=== PATIENT | male | born 2000 | race African-American/Black ===

== ENCOUNTER 2019-06-05 07:34 | Observation (INO) | payer OTHER ==
[~2019-06-05] VITALS: Ht 177.8 cm; Wt 72.7 kg
[2019-06-05] MEDS ORDERED: NS 1,000 ML IV ONE (07:45)
--- NOTE | 2019-06-05 08:06 | REP ---
Portable chest, 07:48 a.m., single AP view with the patient semi upright: There are no comparisons. The lung holden are clear. The cardiac size is normal. The peter, mediastinum, and skeletal structures are unremarkable. Impression: Negative portable chest. Electronically Signed by Sky Giles MD 06/05/2019 07:57 A
--- NOTE | 2019-06-05 08:10 | REPVR ---
PROCEDURE INFORMATION: Exam: CT Head Without Contrast Exam date and time: 06/05/2019 7:56 AM Age: 18 years old Clinical indication: Altered mental status/memory loss TECHNIQUE: Imaging protocol: Computed tomography of the head without contrast. Radiation optimization: All CT scans at this facility use at least one of these dose optimization techniques: automated exposure control; mA and/or kV adjustment per patient size (includes targeted exams where dose is matched to clinical indication); or iterative reconstruction. COMPARISON: No relevant prior studies available. FINDINGS: Brain: Normal. No hemorrhage. Unremarkable white matter. No mass effect. Ventricles: Normal. No ventriculomegaly. Bones/joints: Unremarkable. No acute fracture. Sinuses: Visualized sinuses are unremarkable. No fluid levels. Mastoid air cells: Visualized mastoid air cells are well aerated. Soft tissues: Unremarkable. IMPRESSION: No acute intracranial abnormality. Electronically signed by: Joshua Dozier On 06/05/2019 08:10:04 AM
[2019-06-05 08:23] LABS: VENOUS BASE EXCESS 2.6 (-2.0-2.0); VENOUS O2 SATURATION 80.7 % (60.0-80.0); VENOUS PARTIAL PRESSURE CO2 51.7 mmHg (38.0-50.0); VENOUS PARTIAL PRESSURE O2 48.4 mmHg (30.0-50.0); VENOUS PH 7.367 UNITS (7.330-7.430); VENOUS STANDARD HCO3 26.3 MEQ/L; VENOUS TOTAL CO2 30.6 MEQ/L (24.0-28.0)
[2019-06-05 08:36] LABS: BASO % 0.2 % (0.0-1.0); EOS % 0.7 % (0.0-3.0); HEMATOCRIT 43.9 % (42.0-52.0); HEMOGLOBIN 13.6 g/dl (13.5-17.5); LYMPH # 1.1 10^3/uL (1.5-5.0); LYMPH % 19.7 % (24.0-44.0); MEAN CORPUSCULAR HEMOGLOBIN 25.9 pg (27.0-33.0); MEAN CORPUSCULAR VOLUME 83.6 fl (80.0-96.0); MONO # 0.6 10^3/uL (0.0-0.8); MONO % 11.5 % (0.0-5.0); NEUTROPHILS # 3.7 10^3/uL (1.5-8.5); PLATELET COUNT, AUTOMATED 243 10^3/uL (150-450); RED BLOOD COUNT 5.25 10^6/uL (4.30-6.10); WHITE BLOOD COUNT 5.6 10^3/uL (4.0-10.0)
[2019-06-05 09:15] LABS: ACETAMINOPHEN LEVEL < 2.0 UG/ML (10.0-30.0); ALBUMIN 4.1 GM/DL (3.2-5.2); ALT/SGPT 36 U/L (12-78); BILIRUBIN,DIRECT 0.2 MG/DL (0.0-0.2); BILIRUBIN,TOTAL 0.6 MG/DL (0.2-1.0); BLOOD UREA NITROGEN 10 MG/DL (7-18); CALCIUM LEVEL 8.8 MG/DL (8.5-10.1); CARBON DIOXIDE LEVEL 30 MEQ/L (21-32); CHLORIDE LEVEL 101 MEQ/L (98-107); CK-MB VALUE MASS 11.8 NG/ML (<3.6); CPK CREATINE PHOSPHOKINASE 2650 U/L (39-308); CREATININE FOR GFR 0.75 MG/DL (0.70-1.30); ETHYL ALCOHOL (ETHANOL) 0.003 % (0.000-0.010); GLUCOSE, FASTING 88 MG/DL (70-100); MB/CK RELATIVE INDEX 0.45 (< OR =4); POTASSIUM SERUM 4.3 MEQ/L (3.5-5.1); SALICYLATE LEVEL < 1.7 MG/DL (5.0-30.0); SODIUM LEVEL 137 MEQ/L (136-145); THYROID STIMULATING HORMONE 0.969 uIU/ML (0.463-3.98); TOTAL PROTEIN 8.4 GM/DL (6.4-8.2); TROPONIN I < 0.02 NG/ML (< 0.10)
[2019-06-05 09:28] LABS: OSMOLALITY SERUM 283 MOSM/KG (275-295)
[2019-06-05 10:32] LABS: AMPHETAMINES LEVEL URINE NEGATIVE (NEGATIVE); BARBITURATES URINE NEGATIVE (NEGATIVE); BENZODIAZEPINES URINE NEGATIVE (NEGATIVE); CANNABINOIDS URINE NEGATIVE (NEGATIVE); COCAINE METABOLITE URINE NEGATIVE (NEGATIVE); METHADONE URINE NEGATIVE (NEGATIVE); OPIATES URINE NEGATIVE (NEGATIVE); PHENCYCLIDINE URINE NEGATIVE (NEGATIVE)
[2019-06-05] MEDS ORDERED: NS 1,000 ML IV SCH (10:45)
[2019-06-05] MEDS ORDERED: ACETAMINOPHEN TAB 650MG DOSE (2X325MG) PO PRN (11:45)
[2019-06-05] MEDS: NS 1,000 ML IV SCH ×2 (11:45→19:45)
--- NOTE | 2019-06-05 11:59 | HPEPDOC ---
[facility] Medical History & Physical Date of Admission Jun 05, 2019 Date of Service: Jun 05, 2019 Attending Physician: JAVIER FREDERICK MD History and Physical PRIMARY CARE PROVIDER: [facility] ATTENDING: Dr. Frederick CHIEF COMPLAINT: Found unresponsive with cold exposure. HISTORY OF PRESENT ILLNESS: Patient is a 18-year-old -[place] male that was found this morning early in the morning unresponsive at approximately 540 this a.m. outside. Patient reported that he had been outside, as part of a field exercises. His last memory was going inside a tent before waking up at the hospital. When patient was discovered he was hypotensive, bradycardic with respiratory rate around 20, satting 88%. medic began rewarming procedure. EMS reported that patient had glucose in the 40s. He received an amp of D5. On route, in the ED patient was given juice and crackers, a repeat glucose level was 88. As per ED report his initial FS was 98 then dropped to 40s. Patient denied any history of seizures, denies any history of cardiac problems. He does recall one prior episode of loss of consciousness after running a mile and has to not, and was subsequently discovered to be hypoglycemic. On presentation, patient was normotensive with a temperature of 97.3, pulse of 83, respiratory of 18, blood pressure of 162/81 , saturating 100% on room air. Initial laboratory showed that patient had total creatinine kinase of 2650. He last meal was around 1800 hours last night. 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 Denies illicit drug use. FAMILY HISTORY: Denies family history of cardiac disease, glycogen storage issues, problems with diabetes, ALLERGIES: Please see below. REVIEW OF SYSTEMS: CONSTITUTIONAL: No fevers, denies chills, denies weight loss, denies lethargy HEENT: No rhinorrhea, no itchy eyes, no congestion, No tonsilar exudates CARDIOVASCULAR: No murmurs no palpitations and arrhythmias RESPIRATORY: Not cough, No SOB, no issues to report GASTROINTESTINAL: No nausea, no vomiting, no difficulty swallowing, no pain with eating, no diarrhea HEMATOLOGICAL: No bleeding GENITOURINARY:No Issues HEMATOLOGIC/LYMPHATIC: No swelling, No bleeding PE VITALS: As below. GENERAL APPEARANCE: 18-year-old -Cro[place]ian, somewhat lethargic, but alert, arousable covered in rewarming keanu hugger SKIN: Warm, well perfused. Skin of toes red but warm. ENT: Palate intact, ramon tympanic membrane no bulging, no erythema, Neck supple, no thyromegaly THORAX: Symmetrical. LUNGS: Clear to auscultation bilaterally. HEART: Normal S1, S2. No murmurs, no rubs, no gallops ABDOMEN: Soft. No masses. Bowel sounds are present. TRUNK/SPINE:Straight. EXTREMITIES: Moves all extremities equally. No gross deformities. PULSES: 2+ upper and lower extremity . VIEW OF SYSTEMS: HOME MEDICATIONS: Please see below. LABORATORY DATA: See below. IMAGING: CT Head: No acute intracranial abnormality. Chest Xray: Negative portable MICROBIOLOGY: Please see below. ASSESSMENT: Patient is a 18-year-old gentleman found approximately around 540 this morning to unresponsive with significant cold exposure. He was also discovered to be hypoglycemic on the field prior to admission. Initial evaluation showed patient was positive for rhabdomyolysis. Will be admitted for rhabdomyolysis treatment and workup for hypoglycemia. PLAN: Rhabdomyolysis -Initial CK of 2650. -Received 1 L bolus in the ED. We'll continue IV fluid. We'll monitor renal function daily. Cold exposure and hypothermia -Active rewarming in the ED, we use hypothermic blankets on the floor -toes show some redness and numbness after cold exposure . No schmitt bite. Hypoglycemia, etiology unknown second episode. will need to be evaluated for glycogen storage disease, insulinoma is a possibility, Selvin's disease, fictitious use of insulin is possible. Hypoglycemia reactive to rewarming is also possible. - positive ketones in urine. - Insulin, C-peptide, insulin, cortisol a.m. level ordered. - Consider referral to cost report clerk upon discharge. -Transabdominal ultrasound ordered to evaluate for insulinoma - Spoke with Dr. Taylor (Endocrinology), She recommended AM cortisol level, to stabilize pt and discharge with instructions to establish, he should be discharge with a glucose monitor to check for fasting glucose levels. Rehab -PT and OT to eval and treat DVT -Lovenox Vital Signs Vital Signs Date Time Temp Pulse Resp B/P (MAP) Pulse Ox O2 Delivery O2 Flow Rate FiO2 06/05/19 09:42 97.7 127/81 (96) 06/05/19 09:25 85 18 99 Room Air Laboratory Data Labs 24H Laboratory Tests 2 06/05/19 08:13: Immature Granulocyte % (Auto) 0.9, Neutrophils (%) (Auto) 67.0H, Lymphocytes (%) (Auto) 19.7L, Monocytes (%) (Auto) 11.5H, Eosinophils (%) (Auto) 0.7, Basophils (%) (Auto) 0.2, Neutrophils # (Auto) 3.7, Lymphocytes # (Auto) 1.1L, Monocytes # (Auto) 0.6, Eosinophils # (Auto) 0.0, Basophils # (Auto) 0.0, Nucleated Red Blood Cells % (auto) 0.0, Blood Gas Bicarbonate Standard 26.3, Venous Blood pH 7.367, Venous Blood Partial Pressure CO2 51.7H, Venous Blood Partial Pressure O2 48.4, Venous Blood Total Carbon Dioxide 30.6H, Venous Blood HCO3 29.0H, Venous Blood Oxygen Saturation 80.7H, Venous Blood Base Excess 2.6H, Anion Gap 6L, Osmolality 283, Lactic Acid Level 1.1, Calcium Level 8.8, Total Bilirubin 0.6, Direct Bilirubin 0.2, Aspartate Amino Transf (AST/SGOT) 75H, Alanine Aminotransferase (ALT/SGPT) 36, Alkaline Phosphatase 98, Ammonia < 10, Total Creatine Kinase 2650H, Creatine Kinase MB 11.8H, Creatine Kinase MB Relative Index 0.45, Troponin I < 0.02, Total Protein 8.4H, Albumin 4.1, Albumin/Globulin Ratio 0.95L, Thyroid Stimulating Hormone (TSH) 0.969, Salicylates Level < 1.7L, Acetaminophen Level < 2.0L, Ethyl Alcohol Level 0.003 06/05/19 08:19: POC Glucose (Misc Panel) 94, POC Sodium (Misc Panel) 136, POC Potassium (Misc Panel) 4.1, POC Chloride (Misc Panel) 98, POC Total CO2 (Misc Panel) 31.0H, POC Blood Urea Nitrogen (Misc Panel 12, POC Ionized Calcium (Misc Panel) 4.7, POC Creatinine (Misc Panel) 0.7, POC Hematocrit (Misc Panel) 44.0 06/05/19 08:49: Bedside Glucose (Misc Panel) 74 06/05/19 09:44: Urine Color YELLOW, Urine Appearance CLEAR, Urine pH 6.0, Urine Specific [place] 1.017, Urine Protein NEGATIVE, Urine Glucose (UA) NEGATIVE, Urine Ketones 1+H, Urine Blood NEGATIVE, Urine Nitrite NEGATIVE, Urine Bilirubin NEGATIVE, Urine Urobilinogen 0.2, Urine Leukocyte Esterase NEGATIVE, Urine WBC (Auto) 1, Urine RBC (Auto) 0, Urine Hyaline Casts (Auto) 0, Urine Bacteria (Auto) NEGATIVE, Urine Squamous Epithelial Cells 0, Urine Mucus (Auto) SMALL, Urine Sperm (Auto) , Urine Opiates Screen NEGATIVE, Urine Methadone Screen NEGATIVE, Urine Barbiturates Screen NEGATIVE, Urine Phencyclidine Screen NEGATIVE, Urine Amph etamines Screen NEGATIVE, Urine Benzodiazepines Screen NEGATIVE, Urine Cocaine Metabolite Screen NEGATIVE, Urine Cannabinoids Screen NEGATIVE CBC/BMP Laboratory Tests 06/05/19 08:13 Microbiology Microbiology 06/05/19 Blood Culture, Received Pending 06/05/19 Blood Culture, Received Pending Home Medications Scheduled Blood Sugar Diagnostic (Advanced Glucose Test Strips) 1 Each Strip, 1 STRIP XX ASDIRECTED Allergies Coded Allergies: No Known Allergies (Verified Allergy, Unknown, 06/05/19) Attending Note I personally obtained and history and evaluated and examined the patient. 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 He was on his day 2 of exercises and has been feeling cold the whole day as his boots from the previous day was soaked and then frozen and he did not have a second pair with him. Also he did not have inner thermal wear as recommended. On the day 2 at 2 am he noted that he was feeling like his sugar w as dropping so got some halls candies from another soldier. He had couple then went into the tent as he was very cold and he was found unconscious around 5:30 am. He was hypothermic however i do not know his initial core temp. 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 Patient does give another history of hypoglycemia few months back treated at [place] during a 5 mile run when he became dizzy and disbalanced about 1 mile into the run and was found to be hypoglycemic. Follow recommendations of cost report clerk. LING CHATTERJEE DO Jun 05, 2019 10:54 JAVIER FREDERICK MD Jun 06, 2019 11:46
[2019-06-05 13:00] VITALS: BP 131/74
[2019-06-05 14:06] LABS: HEMOGLOBIN A1c 5.5 %
[2019-06-05 14:11] LABS: ACETONE/KETONE 5.62 MG/DL (<2.81)
[2019-06-05 17:23] LABS: MAGNESIUM LEVEL 2.1 MG/DL (1.4-2.0); PHOSPHORUS LEVEL 3.8 MG/DL (2.5-4.9)
[2019-06-05 18:00] VITALS: BP 113/53
[2019-06-05 20:00] VITALS: BP 131/61
[2019-06-06] MEDS: NS 1,000 ML IV SCH ×2 (01:09→09:51)
[2019-06-06 02:00] VITALS: BP 128/65
[2019-06-06 07:04] LABS: HEMATOCRIT 41.9 % (42.0-52.0); HEMOGLOBIN 12.5 g/dl (13.5-17.5); MEAN CORPUSCULAR HEMOGLOBIN 25.6 pg (27.0-33.0); MEAN CORPUSCULAR HGB CONC 29.8 g/dl (32.0-36.5); MEAN CORPUSCULAR VOLUME 85.7 fl (80.0-96.0); PLATELET COUNT, AUTOMATED 218 10^3/uL (150-450); RED BLOOD COUNT 4.89 10^6/uL (4.30-6.10); WHITE BLOOD COUNT 3.9 10^3/uL (4.0-10.0)
[2019-06-06 07:25] LABS: BLOOD UREA NITROGEN 6 MG/DL (7-18); CALCIUM LEVEL 8.1 MG/DL (8.5-10.1); CARBON DIOXIDE LEVEL 30 MEQ/L (21-32); CHLORIDE LEVEL 105 MEQ/L (98-107); CREATININE FOR GFR 0.74 MG/DL (0.70-1.30); GLUCOSE, FASTING 87 MG/DL (70-100); POTASSIUM SERUM 3.6 MEQ/L (3.5-5.1); SODIUM LEVEL 139 MEQ/L (136-145)
[2019-06-06 08:47] LABS: CPK CREATINE PHOSPHOKINASE 1555 U/L (39-308)
[2019-06-06] MEDS ORDERED: ENOXAPARIN 40 MG/0.4 ML SYRINGE (J1650) SC SCH (09:00)
--- NOTE | 2019-06-06 09:54 | REP ---
Abdominal right upper quadrant ultrasound for insulinoma: There is no cholelithiasis, gallbladder wall thickening or pericholecystic fluid. There is no intrahepatic or extrahepatic biliary duct dilatation. The common biliary duct measures 2.2 mm in diameter. The hepatic parenchyma is homogeneous and otherwise unremarkable. The pancreas has a homogeneous echotexture. No focal pancreatic nodules or masses are identified. The right kidney measures 10.0 x 4. The 3.7 cm and is normal size. There is no right renal calculus or hydronephrosis. There is no right renal solid or cystic mass. There is no abdominal right upper quadrant ascites. Impression: Negative abdominal right upper quadrant ultrasound. No pancreatic nodules or masses are identified. Electronically Signed by Sky Giles MD 06/06/2019 09:45 A
[2019-06-06] MEDS ORDERED: GLUC1TES2 XX (10:16)
[2019-06-06] MEDS ORDERED: LANC30MI XX (10:16)
[2019-06-06] MEDS ORDERED: ALCOPAD25 TOP (10:16)
[2019-06-06] MEDS ORDERED: BLOOKIT21 XX (10:16)
--- NOTE | 2019-06-06 13:15 | ECGEPIP ---
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
--- NOTE | 2019-06-06 16:24 | DS.PDOC ---
Discharge Summary General Date of Admission Jun 05, 2019 at 11:23 Date of Discharge 06/06/19 Attending Physician: JAVIER HUBBARD MD Discharge Summary PROCEDURES PERFORMED DURING STAY: None ADMITTING DIAGNOSES: 1. Found unresponsive with cold exposure. DISCHARGE DIAGNOSES: 1. Rhabdomyolysis 2. Hypothermia 3. Hypoglycemia without diabetes 4. Low Am cortisol needs evaluation from adrenal insufficiency COMPLICATIONS/CHIEF COMPLAINT: Hypoglycemia,Rhabdomyolysis. HISTORY OF PRESENT ILLNESS: Patient is a 18-year-old -[place] male that was found this morning early in the morning unresponsive at approximately 540 this a.m. outside. Patient reported that he had been outside, as part of a field exercises. His last memory was going inside a tent before waking up at the hospital. When patient was discovered he was hypotensive, bradycardic with respiratory rate around 20, satting 88%. medic began rewarming procedure. EMS reported that patient had glucose in the 40s. He received an amp of D5. On route, in the ED patient was given juice and crackers, a repeat glucose level was 88. As per ED report his initial FS was 98 then dropped to 40s. Patient denied any history of seizures, denies any history of cardiac problems. He does recall one prior episode of loss of consciousness after running a mile and has to not, and was subsequently discovered to be hypoglycemic. On presentation, patient was normotensive with a temperature of 97.3, pulse of 83, respiratory of 18, blood pressure of 162/81 , saturating 100% on room air. Initial laboratory showed that patient had total creatinine kinase of 2650. He last meal was around 1800 hours last night. And it was MRE HOSPITAL COURSE: Patient was admitted and aggressively rewarmed until his body temperature was within normal limits. He also received IV hydration due to his rhabdomyolysis. Patient's was also monitor for acute kidney injury. He did not have any acute injury during his hospital stay. On day 2 of hospitalization, patient was discharged in stable condition, without any acute kidney injury, his CK was down trending, patient was able tolerate by mouth intake without difficulty. His sugars were also within normal limits. His hypoglycemia was investigated with insulin level, pro-calcitonin, C-peptide, a.m. cortisol and abdominal ultrasound. He was discharged in stable condition with instructions to follow-up with PCP [facility], who was been instructed to refer patient to Dr. Taylor, endocrinology, for outpatient management of hypoglycemia. Patient was provided with a glucose monitor. Prior discharge, along with instructions on hypoglycemic signs and symptoms, and correction. DISCHARGE MEDICATIONS: Please see below. ALLERGIES: Please see below. PHYSICAL EXAMINATION ON DISCHARGE: VITAL SIGNS: Please see below. GENERAL APPEARANCE: Alert no acute distress. SKIN: Warm, well perfused. LUNGS: Clear to auscultation bilaterally. HEART: Normal S1, S2. No murmurs, no rubs, no gallops ABDOMEN: Soft. No masses. Bowel sounds are present. EXTREMITIES: Moves all extremities equally. No gross deformities. No musculotendinous PULSES: 2+ upper and lower extremity . LABORATORY DATA: Please see below. IMAGING: Abdominal ultrasound: Impression: Negative abdominal right upper quadrant ultrasound. No pancreatic nodules or masses are identified. Head CT: IMPRESSION: No acute intracranial abnormality. Chest x-ray: Impression: Negative portable chest. PROGNOSIS: Fair ACTIVITY: As tolerated DIET: As tolerated DISCHARGE PLAN: To home DISPOSITION: 01 Home, Self-Care. DISCHARGE INSTRUCTIONS: 1. Please refer to endocrinology for hypoglycemia and low cortisol / adrenal insufficiency out patient work up. 2. 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 Self monitor Blood glucose levels and maintain chart, Fasting and Post prandial and prn. DISCHARGE CONDITION: Stable TIME SPENT ON DISCHARGE: 35 minutes. Vital Signs/I&Os Vital Signs Date Time Temp Pulse Resp B/P (MAP) Pulse Ox O2 Delivery O2 Flow Rate FiO2 06/06/19 02:00 98.7 74 18 128/65 (86) 98 Room Air I&O- Last 24 Hours up to 6 AM 06/06/19 06:00 Intake Total 3490 ml Output Total 860 ml Balance 2630 ml Laboratory Data Labs 24H Laboratory Tests 2 06/05/19 16:44: Bedside Glucose (Misc Panel) 99 06/06/19 00:10: Bedside Glucose (Misc Panel) 73 06/06/19 05:55: Bedside Glucose (Misc Panel) 90 06/06/19 06:48: Nucleated Red Blood Cells % (auto) 0.0, Anion Gap 4L, Calcium Level 8.1L, Total Creatine Kinase 1555H, Cortisol AM Sample 4.1L 06/06/19 11:50: Bedside Glucose (Misc Panel) 113H CBC/BMP Laboratory Tests 06/06/19 06:48 FSBS Laboratory Tests Test 06/05/19 16:44 06/06/19 00:10 06/06/19 05:55 06/06/19 11:50 Range/Units Bedside Glucose (Misc Panel) 99 73 90 113 70-105 MG/DL Microbiology Microbiology 06/05/19 Blood Culture - Preliminary, Resulted No growth after 24 hours . All specim... 06/05/19 Blood Culture - Preliminary, Resulted No growth after 24 hours . All specim... Discharge Medications Scheduled Blood Sugar Diagnostic (Advanced Glucose Test Strips) 1 Each Strip, 1 STRIP XX ASDIRECTED Allergies Coded Allergies: No Known Allergies (Verified Allergy, Unknown, 06/05/19) Attending Note I personally saw and evaluated the patient. I agree with the findings and the plan of care documented above in the resident's note. I spent 35 mins in counselling and coordinating the patient's discharge. LING CHATTERJEE DO Jun 06, 2019 16:24 JAVIER HUBBARD MD Jun 07, 2019 09:43
[2019-06-10 00:07] LABS: C-PEPTIDE 1.1 ng/mL (1.1-4.4); INSULIN LEVEL 3.2 uIU/mL (2.6-24.9)
== END 2019-06-06 14:50 | disposition home or self-care (01) ==
LOC: EDBD 07:34 → M ED 07:34 → M ED INP 11:23 → ENRESERVTM 11:54 → ENRESERVDT 11:54 → M MS5PR 12:25
PROVIDERS: ADMIT Internal Medicine Nephrology; ATTEND Internal Medicine Nephrology
DX: M62.82 Rhabdomyolysis (principal); T68.XXXA Hypothermia, initial encounter; E16.2 Hypoglycemia, unspecified; E27.8 Other specified disorders of adrenal gland; X31.XXXA Exposure to excessive natural cold, initial encounter; Y99.1 Military activity
CPT/HCPCS: 36415; 70450; 71045; 76705; 80047; 80048; 80076; 80307; 82010; 82140; 82533; 82550; 82553; 82803; 83036; 83525; 83605; 83735; 83930; 84100; 84206; 84443; 84484; 84681; 85025; 85027; 87040; 93005; 93041; 96360; 96361; 97116; 97161; 97530; 99285; G0480

== ENCOUNTER 2019-09-17 08:08 | Inpatient (IN) | payer OTHER ==
[~2019-09-17] VITALS: Ht 177.8 cm; Wt 76.4 kg
[~2019-09-17 08:08] MED LIST: ALCOPAD25 TOP; BLOOKIT21 XX; GLUC1TES2 XX; LANC30MI XX
[2019-09-17] MEDS ORDERED: NS 1,000 ML IV ONE ×2 (08:30→09:45)
--- NOTE | 2019-09-17 08:45 | ECGEPIP ---
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
[2019-09-17 08:50] LABS: BASO % 0.4 % (0.0-1.0); EOS # 0.1 10^3/uL (0.0-0.5); EOS % 1.3 % (0.0-3.0); HEMOGLOBIN 12.4 g/dl (13.5-17.5); LYMPH # 0.7 10^3/uL (1.5-5.0); LYMPH % 13.3 % (24.0-44.0); MEAN CORPUSCULAR HEMOGLOBIN 26.4 pg (27.0-33.0); MEAN CORPUSCULAR HGB CONC 31.8 g/dl (32.0-36.5); MEAN CORPUSCULAR VOLUME 83.2 fl (80.0-96.0); MONO # 0.6 10^3/uL (0.0-0.8); MONO % 10.5 % (0.0-5.0); NEUTROPHILS % 74.1 % (36.0-66.0); PLATELET COUNT, AUTOMATED 226 10^3/uL (150-450); RED BLOOD COUNT 4.69 10^6/uL (4.30-6.10); WHITE BLOOD COUNT 5.4 10^3/uL (4.0-10.0)
--- NOTE | 2019-09-17 09:01 | REP ---
Oral chest x-ray: Single view. History: Altered mental status. Comparison chest x-ray: June 05, 2019. Findings: The lungs are symmetrically aerated and clear. The pleural angles are sharp. Heart is not enlarged. Monitoring electrodes are seen. Pulmonary vasculature is not increased. No significant bony abnormality. Impression: Negative portable AP chest x-ray. Electronically Signed by Sadi Hoyt MD 09/17/2019 08:52 A
[2019-09-17 09:27] LABS: ALBUMIN 3.5 GM/DL (3.2-5.2); ALT/SGPT 27 U/L (12-78); BILIRUBIN,DIRECT < 0.1 MG/DL (0.0-0.2); BILIRUBIN,TOTAL 0.4 MG/DL (0.2-1.0); TOTAL PROTEIN 7.3 GM/DL (6.4-8.2)
[2019-09-17 09:28] LABS: OSMOLALITY SERUM 298 MOSM/KG (275-295)
[2019-09-17 09:40] LABS: CORTISOL BASELINE 22.3 UG/DL (4.3-22.4)
[2019-09-17] MEDS ORDERED: ASPIRIN 325 MG TAB PO ONE (11:45)
[2019-09-17 13:52] LABS: AMPHETAMINES LEVEL URINE NEGATIVE (NEGATIVE); BARBITURATES URINE NEGATIVE (NEGATIVE); BENZODIAZEPINES URINE POSITIVE (NEGATIVE); CANNABINOIDS URINE NEGATIVE (NEGATIVE); COCAINE METABOLITE URINE NEGATIVE (NEGATIVE); METHADONE URINE NEGATIVE (NEGATIVE); OPIATES URINE NEGATIVE (NEGATIVE); PHENCYCLIDINE URINE NEGATIVE (NEGATIVE)
[2019-09-17] MEDS ORDERED: levETIRAcetam INJection 500 MG in D5W MINI-BAG PLUS 100 ML IV ONE (14:00)
--- NOTE | 2019-09-17 14:08 | REP ---
CT BRAIN WITHOUT CONTRAST: HISTORY: Seizure. Comparison head CT study June 05, 2019. CT FINDINGS: Preliminary digital pharmacy coordinator radiograph is unremarkable. Bony calvarium is intact on bone window settings. Visualized paranasal sinuses are clear. Lateral, third, fourth ventricles are normal in size and position. Pruitt/white differentiation pattern is normal above below the tentorium. There is no evidence of intracranial hemorrhage. No mass, extra-axial fluid collection, infarct, or midline shift is seen. IMPRESSION: Negative CT study of the brain without contrast. Electronically Signed by Sadi Hoyt MD 09/17/2019 02:39 P
--- NOTE | 2019-09-17 14:36 | HPEPDOC ---
General Date of Admission 09/17/19 Date of Service: September 17, 2019 Chief Complaint The patient is a 18-year-old male admitted with a reason for visit of Seizure. History of Present Illness Patient is 18 years old -[place] male without significant past medical history presented to the hospital after he developed seizures. Patient stated that today during physical exercise he developed seizure, most likely generalized according to multiple multiple eye witnesses. Seizure subsided after 5 mg Versed injection. Of note, in May 2019 patient was admitted to the hospital for hypothermia due to loss of consciousness in the field. Patient was found to have low glucose level of 40. Workup for insulinoma was negative. 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 In emergency room patient was found to have negative CT head, lactic acid of 4.9, CPK of 1500, glucose level within normal limit. Patient denied fever, chills, nausea, vomiting, chest pain, palpitations, diarrhea or dysuria Home Medications Scheduled Levetiracetam (Keppra) 250 Mg Tablet, 500 MG PO BID Scheduled PRN Acetaminophen (Acetaminophen) 325 Mg Tablet, 650 MG PO Q6HP PRN for PAIN / FEVER Allergies Coded Allergies: No Known Allergies (Verified Allergy, Unknown, 06/05/19) Past Medical History Medical History No past medical history Family History Mother has hypertension and diabetes Father has hypertension Social History * Smoker: Denies Alcohol: Denies Drugs: denies A-FIB/CHADSVASC A-FIB History Current/History of A-Fib/PAF?: No Current PO Anticoag Therapy: No Review of Systems Constitutional: Denies: Chills, Fever, Malaise Eyes: Denies: Pain, Vision change ENT: Denies: Head Aches Skin: Denies: Rash, Lesions Pulmonary: Denies: Dyspnea, Cough Cardiovascular: Denies: Chest Pain, Palpitations Gastrointestinal: Denies: Nausea, Vomiting Genitourinary: Denies: Frequency Hematologic: Denies: Bruising, Bleeding Excessively Endocrine: Denies: Polydipsia Musculoskeletal: Denies: Neck Pain, Other Symptoms Neurological: Reports: Seizures; Denies: Weakness, Change in speech, Confusion Psych: Reports: Mood Normal Physical Examination General Exam: Positive: Alert, Cooperative Eye Exam: Positive: PERRLA, Conjunctiva & lids normal ENT Exam: Positive: Atraumatic Neck Exam: Positive: Supple; Negative: JVD Chest Exam: Positive: Clear to auscultation Heart Exam: Positive: Rate Normal Telemetry: Positive: No significant arrhythmia Extremity Exam: Negative: Clubbing, Cyanosis Skin Exam: Positive: Nl turgor and temperature Neuro Exam: Positive: Normal Gait, Strength at 5/5 X4 ext, Cranial Nerves 3-12 NL Psych Exam: Positive: Mental status NL Vital Signs Vital Signs Date Time Temp Pulse Resp B/P (MAP) Pulse Ox O2 Delivery O2 Flow Rate FiO2 09/17/19 12:00 70 16 130/64 (86) 100 Room Air 09/17/19 08:23 97.5 Laboratory Data Labs 24H Laboratory Tests 2 09/17/19 08:17: Bedside Glucose (Misc Panel) 95 09/17/19 08:36: Immature Granulocyte % (Auto) 0.4, Neutrophils (%) (Auto) 74.1H, Lymphocytes (%) (Auto) 13.3L, Monocytes (%) (Auto) 10.5H, Eosinophils (%) (Auto) 1.3, Basophils (%) (Auto) 0.4, Neutrophils # (Auto) 4.0, Lymphocytes # (Auto) 0.7L, Monocytes # (Auto) 0.6, Eosinophils # (Auto) 0.1, Basophils # (Auto) 0.0, Nucleated Red Blood Cells % (auto) 0.0, Lactic Acid Level 4.9*H 09/17/19 08:37: Osmolality 298H, Total Bilirubin 0.4, Direct Bilirubin < 0.1, Aspartate Amino Transf (AST/SGOT) 31, Alanine Aminotransferase (ALT/SGPT) 27, Alkaline Phosphatase 86, Total Protein 7.3, Albumin 3.5, Albumin/Globulin Ratio 0.92L, Thyroid Stimulating Hormone (TSH) 1.560, Cortisol Baseline 22.3 09/17/19 08:46: POC Glucose (Misc Panel) 90, POC Sodium (Misc Panel) 141, POC Potassium (Misc Panel) 3.7, POC Chloride (Misc Panel) 102, POC Total CO2 (Misc Panel) 26.0, POC Blood Urea Nitrogen (Misc Panel 16, POC Ionized Calcium (Misc Panel) 4.9, POC Creatinine (Misc Panel) 1.2, POC Hematocrit (Misc Panel) 36.0L 09/17/19 13:10: Urine Opiates Screen NEGATIVE, Urine Methadone Screen NEGATIVE, Urine Barbiturates Screen NEGATIVE, Urine Phencyclidine Screen NEGATIVE, Urine Amphetamines Screen NEGATIVE, Urine Benzodiazepines Screen POSITIVEH, Urine Cocaine Metabolite Screen NEGATIVE, Urine Cannabinoids Screen NEGATIVE CBC/BMP Laboratory Tests 09/17/19 08:36 Assessment/Plan Patient is 18 years old -[place] male without significant past medical history presented to the hospital after he developed seizures. Patient stated that today during physical exercise he developed seizure, most likely generalized according to multiple multiple eye witnesses. Seizure subsided after 5 mg Versed injection. Of note, in May 2019 patient was admitted to the hospital for hypothermia due to loss of consciousness in the field. Patient was found to have low glucose level of 40. Workup for insulinoma was negative. 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 In emergency room patient was found to have negative CT head, lactic acid of 4.9, CPK of 1500, glucose level within normal limit. Patient denied fever, chills, nausea, vomiting, chest pain, palpitations, diarrhea or dysuria Problems (1) Seizure Status: Acute Problem Text: Unknown etiology for now History of admission in May suspicious for seizure, patient did have rhabdomyolysis and hypoglycemia Patient does not have electrolyte imbalance, patient is not hypertensive, he doesn't take any medications regular basis. Patient is not intoxicated Neurological exam is benign Patient is afebrile, he denied any recent head trauma Patient might need EEG CT head negative Dr. Tavares was consulted by phone and he recommended 500 mg Keppra by mouth twice a day MRI brain (2) Rhabdomyolysis Status: Acute Problem Text: 2/2 seizure IV fluid continue to monitor will check CPK Plan / VTE VTE Prophylaxis Ordered?: Yes ERIN CADENA DO September 17, 2019 14:36
[2019-09-17 14:59] LABS: ALBUMIN 3.4 GM/DL (3.2-5.2); ALT/SGPT 22 U/L (12-78); BILIRUBIN,DIRECT 0.1 MG/DL (0.0-0.2); BILIRUBIN,TOTAL 0.5 MG/DL (0.2-1.0); TOTAL PROTEIN 7.1 GM/DL (6.4-8.2)
[2019-09-17 15:07] LABS: PROLACTIN 9.3 NG/ML (2.1-17.7)
[2019-09-17 16:36] VITALS: BP 148/93
[2019-09-17] MEDS: NS 1,000 ML IV SCH ×2 (17:05→22:45)
--- NOTE | 2019-09-17 18:50 | REPVR ---
PROCEDURE INFORMATION: Exam: MR Head Without Contrast Exam date and time: 09/17/2019 6:20 PM Age: 18 years old Clinical indication: Other: Seizure TECHNIQUE: Imaging protocol: MR of the head without contrast. COMPARISON: CT Head without contrast 09/17/2019 12:51 PM FINDINGS: Brain: Normal. No acute infarct. No hemorrhage. No significant white matter disease. No edema. Ventricles: Normal. No ventriculomegaly. Bones/joints: Unremarkable. Soft tissues: Unremarkable. Sinuses: Normal as visualized. No acute sinusitis. Mastoid air cells: Normal as visualized. No mastoid effusion. Orbits: Unremarkable. Nasopharynx: Boggy nasal mucosa in the right nasal cavity. IMPRESSION: No acute intracranial abnormalities. Electronically signed by: Paul Mancilla On 09/17/2019 18:50:22 PM
[2019-09-17] MEDS: levETIRAcetam 250MG TABLET (KEPPRA) PO SCH (20:34)
[2019-09-17 22:00] VITALS: BP 129/73
[2019-09-18] MEDS ORDERED: ACETAMINOPHEN TAB 650MG DOSE (2X325MG) PO PRN (03:45)
[2019-09-18] MEDS ORDERED: PERCOCET 5MG/325MG TAB PO ONE (04:45)
[2019-09-18 06:00] VITALS: BP 130/71
[2019-09-18 06:22] LABS: HEMATOCRIT 39.5 % (42.0-52.0); HEMOGLOBIN 12.6 g/dl (13.5-17.5); MEAN CORPUSCULAR HEMOGLOBIN 26.6 pg (27.0-33.0); MEAN CORPUSCULAR HGB CONC 31.9 g/dl (32.0-36.5); MEAN CORPUSCULAR VOLUME 83.5 fl (80.0-96.0); PLATELET COUNT, AUTOMATED 216 10^3/uL (150-450); RED BLOOD COUNT 4.73 10^6/uL (4.30-6.10); WHITE BLOOD COUNT 4.5 10^3/uL (4.0-10.0)
[2019-09-18 06:53] LABS: ALBUMIN 3.5 GM/DL (3.2-5.2); ALT/SGPT 32 U/L (12-78); BILIRUBIN,TOTAL 0.7 MG/DL (0.2-1.0); BLOOD UREA NITROGEN 7 MG/DL (7-18); CALCIUM LEVEL 8.3 MG/DL (8.5-10.1); CARBON DIOXIDE LEVEL 29 MEQ/L (21-32); CHLORIDE LEVEL 105 MEQ/L (98-107); CREATININE FOR GFR 0.84 MG/DL (0.70-1.30); GLUCOSE, FASTING 88 MG/DL (70-100); POTASSIUM SERUM 3.9 MEQ/L (3.5-5.1); SODIUM LEVEL 139 MEQ/L (136-145); TOTAL PROTEIN 7.2 GM/DL (6.4-8.2)
[2019-09-18] MEDS: levETIRAcetam 250MG TABLET (KEPPRA) PO SCH ×2 (08:06→20:32)
[2019-09-18] MEDS: NS 1,000 ML IV SCH ×3 (08:06→17:08)
[2019-09-18 08:46] LABS: IRON (FE) 78 UG/DL (65-175); PERCENT SATURATION 26.6 % (19.7-50.0); TOTAL IRON BINDING CAPACITY 293 UG/DL (250-450)
[2019-09-18 09:58] LABS: VITAMIN B12 LEVEL 415 PG/ML (247-911)
[2019-09-18] MEDS ORDERED: ACET1TAB55 PO (12:24)
[2019-09-18] MEDS ORDERED: KEPP250T5 PO (12:24)
[2019-09-18 14:00] VITALS: BP 127/78
[2019-09-18 14:07] LABS: ANTI DOUBLE STRAND-DNA AB <1 IU/mL (0-9); ANTINUCLEAR ANTIBODIES DIRECT Positive (Negative); RNP ANTIBODIES <0.2 AI (0.0-0.9); SJOGREN'S ANTI SS-A 7.6 AI (0.0-0.9); SJOGREN'S ANTI SS-B <0.2 AI (0.0-0.9); SMITH ANTIBODIES <0.2 AI (0.0-0.9)
[2019-09-18] MEDS ORDERED: NS 1,000 ML IV ONE ×3 (15:00→20:15)
[2019-09-18 15:33] LABS: INR 1.13; PROTHROMBIN TIME 14.2 SECONDS (11.8-14.0)
--- NOTE | 2019-09-18 15:48 | EEG ---
DATE OF EE09/18/2019 REFERRING PHYSICIAN: Dr. Mark Broussard DIAGNOSIS: Seizure. 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 He is currently taking Keppra, aspirin, Percocet, etc. TECHNICAL DESCRIPTION: This digital EEG was recorded by 21 scalp, ear, and two EKG electrodes and was reviewed in bipolar and referential montages following reformatting in 10-20 international electrode placement system. INTERPRETATION: The patient was noted to be in awake and drowsy states during this EEG. Resting awake background rhythm consisted of well-formed posterior dominant rhythm with anterior/posterior gradient comprising of 11 Hz alpha activity measuring 15-40 microvolts in amplitude, which was symmetric and reactive to eye opening. Attenuation of posterior dominant rhythm was seen during transition into drowsiness. Stage I and II sleep were reviewed and were symmetric bilaterally. Hyperventilation could not be performed. Photic stimulation remained unremarkable. No focal, lateralizing or epileptiform abnormalities were seen. No relevant clinical activity was noted. CONCLUSION: This EEG in awake, drowsy states, stage I and II sleep is within normal limits. EKG revealed normal sinus rhythm.
[2019-09-18 16:09] LABS: ALBUMIN 3.4 GM/DL (3.2-5.2); ALT/SGPT 51 U/L (12-78); BILIRUBIN,TOTAL 0.6 MG/DL (0.2-1.0); BLOOD UREA NITROGEN 6 MG/DL (7-18); CALCIUM LEVEL 8.7 MG/DL (8.5-10.1); CARBON DIOXIDE LEVEL 29 MEQ/L (21-32); CHLORIDE LEVEL 105 MEQ/L (98-107); CREATININE FOR GFR 0.85 MG/DL (0.70-1.30); GLUCOSE, FASTING 109 MG/DL (70-100); MAGNESIUM LEVEL 1.9 MG/DL (1.4-2.0); POTASSIUM SERUM 3.4 MEQ/L (3.5-5.1); SODIUM LEVEL 139 MEQ/L (136-145); TOTAL PROTEIN 7.2 GM/DL (6.4-8.2)
[2019-09-18] MEDS: KCL 10MEQ/100ML SWI (KRUN) 10 MEQ in IV 1 EA IV ONE ×2 (17:30→18:30)
--- NOTE | 2019-09-18 18:45 | IPNPDOC ---
Text Note Date of Service The patient was seen on 09/18/19. NOTE Subjective: Patient complains of the generalized muscle pain, he stated that his right arm is painful to touch. Objective: VITAL SIGNS: Please see below. GENERAL: awake, alert, NAD HEENT: NCAT, anicteric sclera, LENI NECK: supple, no JVD CARDIOVASCULAR EXAMINATION: NS1S2, regular rate/rhythm RESPIRATORY EXAMINATION: CTA b/l, no wheezes/rales/rhonchi ABDOMINAL EXAMINATION: positive bowel sounds x 4, NT EXTREMITIES: no cyanosis, clubbing, edema, both arm tender on palpation, pulsations intact SKIN: warm, no rashes. NEUROLOGICAL EXAMINATION: AAO x 3, no motor/sensory deficits PSYCHIATRIC EXAMINATION: calm, normal affect Assessment/Plan Patient is 18 years old -[place] male without significant past medical history presented to the hospital after he developed seizures. Patient stated that today during physical exercise he developed seizure, most likely gene ralized according to multiple multiple eye witnesses. Seizure subsided after 5 mg Versed injection. Of note, in May 2019 patient was admitted to the hospital for hypothermia due to loss of consciousness in the field. Patient was found to have low glucose level of 40. Workup for insulinoma was negative. 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 In emergency room patient was found to have negative CT head, lactic acid of 4.9, CPK of 1500, glucose level within normal limit. Patient denied fever, chills, nausea, vomiting, chest pain, palpitations, diarrhea or dysuria Problems (1) Seizure Unknown etiology for now History of admission in May suspicious for seizure, patient did have rhabdomyolysis and hypoglycemia Patient does not have electrolyte imbalance, patient is not hypertensive, he doesn't take any medications regular basis. Patient is not intoxicated Neurological exam is benign Patient is afebrile, he denied any recent head trauma EEG done, result pending CT head negative Dr. Tavares was consulted by phone and he recommended 500 mg Keppra by mouth twice a day MRI brain negative (2) Rhabdomyolysis 2/2 seizure Continue to monitor for signs and symptoms of compartment syndrome Creatinine today is improved to 0.8 CPK increased today to 22,000 IV fluid CMP every 6 hours Aggressive IV hydration Adrenal insufficiency Patient 's am cortisol level is 4.1 ACTH is pending VS,Fishbone, I+O VS, Fishbone, I+O Laboratory Tests 09/18/19 06:02 09/18/19 15:10 Vital Signs Date Time Temp Pulse Resp B/P (MAP) Pulse Ox O2 Delivery O2 Flow Rate FiO2 09/18/19 14:00 98.7 71 16 127/78 (94) 97 Room Air I&O- Last 24 Hours up to 6 AM 09/18/19 06:00 Intake Total 2710 ml Output Total 2425 ml Balance 285 ml ERIN CADENA DO September 18, 2019 18:45
[2019-09-18 19:24] LABS: ALBUMIN 3.5 GM/DL (3.2-5.2); ALT/SGPT 57 U/L (12-78); BILIRUBIN,TOTAL 0.4 MG/DL (0.2-1.0); BLOOD UREA NITROGEN 6 MG/DL (7-18); CALCIUM LEVEL 8.4 MG/DL (8.5-10.1); CARBON DIOXIDE LEVEL 28 MEQ/L (21-32); CHLORIDE LEVEL 108 MEQ/L (98-107); CPK CREATINE PHOSPHOKINASE 32700 U/L (39-308); CREATININE FOR GFR 0.74 MG/DL (0.70-1.30); GLUCOSE, FASTING 82 MG/DL (70-100); POTASSIUM SERUM 3.7 MEQ/L (3.5-5.1); SODIUM LEVEL 141 MEQ/L (136-145); TOTAL PROTEIN 7.2 GM/DL (6.4-8.2)
[2019-09-18] MEDS ORDERED: POTASSIUM CHLORIDE 10 MEQ SR TABLET PO ONE (20:00)
[2019-09-18] MEDS: ENOXAPARIN 30MG/0.3ML SYRINGE (J1650 PER 10MG) SC SCH (20:33)
[2019-09-18 21:00] LABS: LDH LACTATE DEHYDROGENASE 1006 U/L (87-241)
[2019-09-18 22:00] VITALS: BP 129/81
[2019-09-19] MEDS: NS 1,000 ML IV SCH ×7 (01:52→22:59)
[2019-09-19 02:00] LABS: ALBUMIN 3.4 GM/DL (3.2-5.2); ALT/SGPT 62 U/L (12-78); BILIRUBIN,TOTAL 0.4 MG/DL (0.2-1.0); BLOOD UREA NITROGEN 6 MG/DL (7-18); CALCIUM LEVEL 8.1 MG/DL (8.5-10.1); CARBON DIOXIDE LEVEL 30 MEQ/L (21-32); CHLORIDE LEVEL 104 MEQ/L (98-107); CREATININE FOR GFR 0.85 MG/DL (0.70-1.30); GLUCOSE, FASTING 109 MG/DL (70-100); POTASSIUM SERUM 4.3 MEQ/L (3.5-5.1); SODIUM LEVEL 139 MEQ/L (136-145); TOTAL PROTEIN 7.2 GM/DL (6.4-8.2)
[2019-09-19 06:00] VITALS: BP 122/68
[2019-09-19 07:19] LABS: ALBUMIN 3.4 GM/DL (3.2-5.2); ALT/SGPT 63 U/L (12-78); BILIRUBIN,TOTAL 0.4 MG/DL (0.2-1.0); BLOOD UREA NITROGEN 5 MG/DL (7-18); CALCIUM LEVEL 8.3 MG/DL (8.5-10.1); CARBON DIOXIDE LEVEL 32 MEQ/L (21-32); CHLORIDE LEVEL 105 MEQ/L (98-107); CREATININE FOR GFR 0.84 MG/DL (0.70-1.30); GLUCOSE, FASTING 81 MG/DL (70-100); POTASSIUM SERUM 4.2 MEQ/L (3.5-5.1); SODIUM LEVEL 140 MEQ/L (136-145); TOTAL PROTEIN 7.4 GM/DL (6.4-8.2)
[2019-09-19] MEDS: levETIRAcetam 250MG TABLET (KEPPRA) PO SCH ×2 (08:22→19:52)
[2019-09-19 13:18] LABS: ALBUMIN 3.5 GM/DL (3.2-5.2); ALT/SGPT 67 U/L (12-78); BILIRUBIN,TOTAL 0.4 MG/DL (0.2-1.0); BLOOD UREA NITROGEN 4 MG/DL (7-18); CALCIUM LEVEL 8.4 MG/DL (8.5-10.1); CARBON DIOXIDE LEVEL 28 MEQ/L (21-32); CHLORIDE LEVEL 106 MEQ/L (98-107); GLUCOSE, FASTING 81 MG/DL (70-100); POTASSIUM SERUM 3.8 MEQ/L (3.5-5.1); SODIUM LEVEL 139 MEQ/L (136-145); TOTAL PROTEIN 7.6 GM/DL (6.4-8.2)
[2019-09-19 14:00] VITALS: BP 133/74
--- NOTE | 2019-09-19 15:50 | IPNPDOC ---
Text Note Date of Service The patient was seen on 09/19/19. NOTE Subjective: Patient complains of the generalized muscle pain, he stated that his right arm is painful to touch. Objective: VITAL SIGNS: Please see below. GENERAL: awake, alert, NAD HEENT: NCAT, anicteric sclera, LENI NECK: supple, no JVD CARDIOVASCULAR EXAMINATION: NS1S2, regular rate/rhythm RESPIRATORY EXAMINATION: CTA b/l, no wheezes/rales/rhonchi ABDOMINAL EXAMINATION: positive bowel sounds x 4, NT EXTREMITIES: no cyanosis, clubbing, edema, both arm tender on palpation, pulsations intact SKIN: warm, no rashes. NEUROLOGICAL EXAMINATION: AAO x 3, no motor/sensory deficits PSYCHIATRIC EXAMINATION: calm, normal affect Assessment/Plan Patient is 18 years old -[place] male without significant past medical history presented to the hospital after he developed seizures. Patient stated that today during physical exercise he developed seizure, most likely gene ralized according to multiple multiple eye witnesses. Seizure subsided after 5 mg Versed injection. Of note, in May 2019 patient was admitted to the hospital for hypothermia due to loss of consciousness in the field. Patient was found to have low glucose level of 40. Workup for insulinoma was negative. 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 In emergency room patient was found to have negative CT head, lactic acid of 4.9, CPK of 1500, glucose level within normal limit. Patient denied fever, chills, nausea, vomiting, chest pain, palpitations, diarrhea or dysuria Problems (1) Seizure Unknown etiology for now History of admission in May suspicious for seizure, patient did have rhabdomyolysis and hypoglycemia Patient does not have electrolyte imbalance, patient is not hypertensive, he doesn't take any medications regular basis. Patient is not intoxicated Neurological exam is benign. EEG : No focal, lateralizing or epileptiform abnormalities were seen Patient is afebrile, he denied any recent head trauma CT head negative Dr. Tavares was consulted by phone and he recommended 500 mg Keppra by mouth twice a day MRI brain negative (2) Rhabdomyolysis 2/2 seizure Continue to monitor for signs and symptoms of compartment syndrome Creatinine today is improved to 0.7 CPK increased today to 32,000 IV fluid CMP every 6 hours Aggressive IV hydration Adrenal insufficiency Patient 's am cortisol level is 4.1 ACTH is pending Patient is normotensive VS,Fishbone, I+O VS, Fishbone, I+O Laboratory Tests 09/18/19 18:15 09/19/19 01:08 09/19/19 06:40 09/19/19 12:41 Vital Signs Date Time Temp Pulse Resp B/P (MAP) Pulse Ox O2 Delivery O2 Flow Rate FiO2 09/19/19 14:00 98.4 72 18 133/74 (93) 100 Room Air I&O- Last 24 Hours up to 6 AM 09/19/19 06:00 Intake Total 8480 ml Output Total 6750 ml Balance 1730 ml ERIN CADENA DO September 19, 2019 15:50
[2019-09-19] MEDS: ENOXAPARIN 30MG/0.3ML SYRINGE (J1650 PER 10MG) SC SCH (19:53)
[2019-09-19 21:00] LABS: ALBUMIN 3.4 GM/DL (3.2-5.2); ALT/SGPT 75 U/L (12-78); BILIRUBIN,TOTAL 0.4 MG/DL (0.2-1.0); BLOOD UREA NITROGEN 5 MG/DL (7-18); CALCIUM LEVEL 8.3 MG/DL (8.5-10.1); CARBON DIOXIDE LEVEL 29 MEQ/L (21-32); CHLORIDE LEVEL 105 MEQ/L (98-107); CREATININE FOR GFR 0.83 MG/DL (0.70-1.30); GLUCOSE, FASTING 84 MG/DL (70-100); POTASSIUM SERUM 3.8 MEQ/L (3.5-5.1); SODIUM LEVEL 139 MEQ/L (136-145); TOTAL PROTEIN 7.5 GM/DL (6.4-8.2)
[2019-09-19 21:17] LABS: CPK CREATINE PHOSPHOKINASE 59792 U/L (39-308)
[2019-09-19 22:00] VITALS: BP 130/75
[2019-09-20 01:46] LABS: ALBUMIN 3.5 GM/DL (3.2-5.2); ALT/SGPT 76 U/L (12-78); BILIRUBIN,TOTAL 0.4 MG/DL (0.2-1.0); BLOOD UREA NITROGEN 4 MG/DL (7-18); CALCIUM LEVEL 8.3 MG/DL (8.5-10.1); CARBON DIOXIDE LEVEL 32 MEQ/L (21-32); CHLORIDE LEVEL 104 MEQ/L (98-107); CREATININE FOR GFR 0.85 MG/DL (0.70-1.30); GLUCOSE, FASTING 78 MG/DL (70-100); POTASSIUM SERUM 4.2 MEQ/L (3.5-5.1); SODIUM LEVEL 140 MEQ/L (136-145); TOTAL PROTEIN 7.4 GM/DL (6.4-8.2)
[2019-09-20] MEDS: NS 1,000 ML IV SCH ×6 (03:08→22:59)
[2019-09-20] MEDS: levETIRAcetam 250MG TABLET (KEPPRA) PO SCH ×2 (07:43→19:58)
[2019-09-20] MEDS ORDERED: NS 1,000 ML IV ONE ×3 (07:45→17:00)
[2019-09-20 08:00] LABS: CPK CREATINE PHOSPHOKINASE 33500 U/L (39-308)
[2019-09-20 08:01] LABS: ALBUMIN 3.3 GM/DL (3.2-5.2); ALT/SGPT 75 U/L (12-78); BILIRUBIN,TOTAL 0.6 MG/DL (0.2-1.0); BLOOD UREA NITROGEN 4 MG/DL (7-18); CALCIUM LEVEL 8.6 MG/DL (8.5-10.1); CARBON DIOXIDE LEVEL 32 MEQ/L (21-32); CHLORIDE LEVEL 105 MEQ/L (98-107); CREATININE FOR GFR 0.88 MG/DL (0.70-1.30); GLUCOSE, FASTING 79 MG/DL (70-100); SODIUM LEVEL 141 MEQ/L (136-145); TOTAL PROTEIN 6.9 GM/DL (6.4-8.2)
--- NOTE | 2019-09-20 11:11 | IPNPDOC ---
Text Note Date of Service The patient was seen on 09/20/19. NOTE Subjective: No any acute events overnight. Patient denies any muscle ache. Objective: VITAL SIGNS: Please see below. GENERAL: awake, alert, NAD HEENT: NCAT, anicteric sclera, LENI NECK: supple, no JVD CARDIOVASCULAR EXAMINATION: NS1S2, regular rate/rhythm RESPIRATORY EXAMINATION: CTA b/l, no wheezes/rales/rhonchi ABDOMINAL EXAMINATION: positive bowel sounds x 4, NT EXTREMITIES: no cyanosis, clubbing, edema, both arm tender on palpation, pulsations intact SKIN: warm, no rashes. NEUROLOGICAL EXAMINATION: AAO x 3, no motor/sensory deficits PSYCHIATRIC EXAMINATION: calm, normal affect Assessment/Plan Patient is 18 years old -[place] male without significant past medical history presented to the hospital after he developed seizures. Patient stated that today during physical exercise he developed seizure, most likely generalized according to multiple multiple eye witnesses. Seizure subsided after 5 mg Versed injection. Of note, in May 2019 patient was admitted to the hospital for hypothermia due to loss of consciousness in the field. Patient was found to have low glucose level of 40. Workup for insulinoma was negative. 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 In emergency room patient was found to have negative CT head, lactic acid of 4.9, CPK of 1500, glucose level within normal limit. Patient denied fever, chills, nausea, vomiting, chest pain, palpitations, diarrhea or dysuria Problems (1) Seizure Unknown etiology for now History of admission in May suspicious for seizure, patient did have rhabdomyolysis and hypoglycemia Patient does not have electrolyte imbalance, patient is not hypertensive, he doesn't take any medications regular basis. Patient is not intoxicated Neurological exam is benign. EEG : No focal, lateralizing or epileptiform abnormalities were seen Patient is afebrile, he denied any recent head trauma CT head negative Dr. Tavares was consulted by phone and he recommended 500 mg Keppra by mouth twice a day MRI brain negative (2) Rhabdomyolysis 2/2 seizure Continue to monitor for signs and symptoms of compartment syndrome Creatinine today is improved to 0.7 CPK around 32,000 CMP every 6 hours Continue Aggressive IV hydration Adrenal insufficiency Patient 's am cortisol level is 4.1 ACTH pending Patient is normotensive Normocytic anemia Peripheral smear showed hypochromic normocytic anemia. Could be secondary to adrenal insufficiency. Iron study within normal limit Continue to monitor VS,Fishbone, I+O VS, Fishbone, I+O Laboratory Tests 09/19/19 12:41 09/19/19 18:44 09/20/19 01:03 09/20/19 05:55 Vital Signs Date Time Temp Pulse Resp B/P (MAP) Pulse Ox O2 Delivery O2 Flow Rate FiO2 09/20/19 06:00 98.5 61 20 99 Room Air 09/19/19 22:00 130/75 (93) I&O- Last 24 Hours up to 6 AM 09/20/19 06:00 Intake Total 6775 ml Output Total 2100 ml Balance 4675 ml ERIN CADENA DO September 20, 2019 11:11
[2019-09-20 13:45] LABS: ALBUMIN 3.6 GM/DL (3.2-5.2); ALT/SGPT 79 U/L (12-78); BILIRUBIN,TOTAL 0.4 MG/DL (0.2-1.0); BLOOD UREA NITROGEN 7 MG/DL (7-18); CALCIUM LEVEL 8.6 MG/DL (8.5-10.1); CARBON DIOXIDE LEVEL 32 MEQ/L (21-32); CHLORIDE LEVEL 104 MEQ/L (98-107); CREATININE FOR GFR 0.82 MG/DL (0.70-1.30); GLUCOSE, FASTING 72 MG/DL (70-100); SODIUM LEVEL 140 MEQ/L (136-145); TOTAL PROTEIN 7.5 GM/DL (6.4-8.2)
[2019-09-20 14:00] VITALS: BP 143/89
[2019-09-20] MEDS: ENOXAPARIN 30MG/0.3ML SYRINGE (J1650 PER 10MG) SC SCH (19:58)
[2019-09-20 22:00] VITALS: BP 117/66
[2019-09-21] MEDS: NS 1,000 ML IV SCH ×4 (02:54→22:23)
[2019-09-21 06:00] VITALS: BP 118/66
[2019-09-21] MEDS ORDERED: NS 1,000 ML IV ONE ×3 (07:30→17:00)
[2019-09-21] MEDS: levETIRAcetam 250MG TABLET (KEPPRA) PO SCH ×2 (07:49→20:56)
[2019-09-21 07:52] LABS: BASO % 0.5 % (0.0-1.0); EOS # 0.2 10^3/uL (0.0-0.5); EOS % 5.3 % (0.0-3.0); HEMATOCRIT 39.4 % (42.0-52.0); HEMOGLOBIN 12.4 g/dl (13.5-17.5); LYMPH # 1.4 10^3/uL (1.5-5.0); LYMPH % 34.8 % (24.0-44.0); MEAN CORPUSCULAR HEMOGLOBIN 26.2 pg (27.0-33.0); MEAN CORPUSCULAR HGB CONC 31.5 g/dl (32.0-36.5); MEAN CORPUSCULAR VOLUME 83.3 fl (80.0-96.0); MONO # 0.5 10^3/uL (0.0-0.8); MONO % 11.3 % (0.0-5.0); NEUTROPHILS # 1.9 10^3/uL (1.5-8.5); NEUTROPHILS % 47.8 % (36.0-66.0); PLATELET COUNT, AUTOMATED 218 10^3/uL (150-450); RED BLOOD COUNT 4.73 10^6/uL (4.30-6.10)
[2019-09-21] MEDS ORDERED: FUROSEMIDE 20MG/2ML VIAL (J1940) IV ONE ×2 (08:00→09:00)
--- NOTE | 2019-09-21 09:30 | REP ---
Clinical: Chest pain and tightness . Comparison: 09/17/2019 . Findings: The mediastinum and cardiac silhouette are stable and within normal limits for portable technique. The lung holden are clear without acute consolidation, effusion, or pneumothorax. Skeletal structures are intact. Impression: No acute cardiopulmonary process appreciated. Electronically Signed by Oswlad Llamas MD 09/21/2019 09:21 A
[2019-09-21 09:56] LABS: CK-MB VALUE MASS 5.1 NG/ML (<3.6); TROPONIN I < 0.02 NG/ML (< 0.10)
[2019-09-21 09:58] LABS: CPK CREATINE PHOSPHOKINASE 22500 U/L (39-308); MB/CK RELATIVE INDEX 0.02 (< OR =4)
--- NOTE | 2019-09-21 11:41 | IPNPDOC ---
Text Note Date of Service The patient was seen on 09/21/19. NOTE Subjective: No any acute events overnight. In the morning patient complains of squeezing chest pain in the middle of his chest exacerbated by deep inspiration. Patient described pain as 5 out of 10 Objective: VITAL SIGNS: Please see below. GENERAL: awake, alert, NAD HEENT: NCAT, anicteric sclera, LENI NECK: supple, no JVD CARDIOVASCULAR EXAMINATION: NS1S2, regular rate/rhythm RESPIRATORY EXAMINATION: CTA b/l, no wheezes/rales/rhonchi ABDOMINAL EXAMINATION: positive bowel sounds x 4, NT EXTREMITIES: no cyanosis, clubbing, edema, both arm tender on palpation, pulsations intact SKIN: warm, no rashes. NEUROLOGICAL EXAMINATION: AAO x 3, no motor/sensory deficits PSYCHIATRIC EXAMINATION: calm, normal affect Assessment/Plan Patient is 18 years old -[place] male without significant past medical history presented to the hospital after he developed seizures. Patient stated that today during physical exercise he developed seizure, most likely generalized according to multiple multiple eye witnesses. Seizure subsided after 5 mg Versed injection. Of note, in May 2019 patient was admitted to the hospital for hypothermia due to loss of consciousness in the field. Patient was found to have low glucose level of 40. Workup for insulinoma was negative. 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 In emergency room patient was found to have negative CT head, lactic acid of 4.9, CPK of 1500, glucose level within normal limit. Patient denied fever, chills, nausea, vomiting, chest pain, palpitations, diarrhea or dysuria Problems (1) Seizure Unknown etiology for now History of admission in May suspicious for seizure, patient did have rhabdomyolysis and hypoglycemia Patient does not have electrolyte imbalance, patient is not hypertensive, he doesn't take any medications regular basis. Patient is not intoxicated Neurological exam is benign. EEG : No focal, lateralizing or epileptiform abnormalities were seen Patient is afebrile, he denied any recent head trauma CT head negative Dr. Tavares was consulted by phone and he recommended 500 mg Keppra by mouth twice a day MRI brain negative (2) Rhabdomyolysis 2/2 seizure Continue to monitor for signs and symptoms of compartment syndrome Creatinine today is improved to 0.7 CPK improved today Continue to monitor CPK Continue Aggressive IV hydration Adrenal insufficiency Patient 's am cortisol level is 4.1 ACTH pending Patient is normotensive Normocytic anemia Peripheral smear showed hypochromic normocytic anemia. Could be secondary to adrenal insufficiency. Iron study within normal limit Continue to monitor Chest pain EKG was done and did not reveal any acute ischemic changes Troponin was negative Chest x-ray negative for acute cardiopulmonary diseases Continue to monitor VS,Fishbone, I+O VS, Fishbone, I+O Laboratory Tests 09/20/19 12:52 09/21/19 05:39 Vital Signs Date Time Temp Pulse Resp B/P (MAP) Pulse Ox O2 Delivery O2 Flow Rate FiO2 09/21/19 06:00 98.3 58 18 118/66 (83) 99 Room Air I&O- Last 24 Hours up to 6 AM 09/21/19 06:00 Intake Total 9395 ml Output Total 400 ml Balance 8995 ml ERIN CADENA DO September 21, 2019 11:41
[2019-09-21 14:00] VITALS: BP 117/73
[2019-09-21] MEDS: ENOXAPARIN 30MG/0.3ML SYRINGE (J1650 PER 10MG) SC SCH (20:56)
[2019-09-21 22:00] VITALS: BP 121/62
[2019-09-22 00:06] LABS: RENIN LEVEL 2.185 ng/mL/hr (0.167-5.380)
--- NOTE | 2019-09-22 00:06 | ECGEPIP ---
[facility] Test Date: 2019-09-21 Pat Name: DAWIT SALVADOR Department: Room: [place] [address] Gender: Male Clinical Cytogeneticist Scientist: HAILEE : 2000 Requested By: ERIN CADENA Order Number: [id number] Reading MD: Geovani Duke Measurements Intervals Dane Rate: 58 P: 66 MA: 215 QRS: 57 QRSD: 88 T: 17 QT: 400 QTc: 394 Interpretive Statements SINUS BRADYCARDIA WITH FIRST DEGREE AV BLOCK ST ELEVATION, PROBABLY EARLY REPOLARIZATION Compared to prior tracings(2) in the system, heart rate is now slower and MA interval is longer Electronically Signed on 09-22-2019 0:06:05 EDT by Geovani Duke
[2019-09-22] MEDS: NS 1,000 ML IV SCH ×4 (01:46→21:04)
[2019-09-22 04:24] LABS: HEMATOCRIT 40.1 % (42.0-52.0); HEMOGLOBIN 12.8 g/dl (13.5-17.5); MEAN CORPUSCULAR HEMOGLOBIN 26.6 pg (27.0-33.0); MEAN CORPUSCULAR HGB CONC 31.9 g/dl (32.0-36.5); MEAN CORPUSCULAR VOLUME 83.2 fl (80.0-96.0); PLATELET COUNT, AUTOMATED 220 10^3/uL (150-450); RED BLOOD COUNT 4.82 10^6/uL (4.30-6.10); WHITE BLOOD COUNT 4.3 10^3/uL (4.0-10.0)
[2019-09-22 04:57] LABS: ALBUMIN 3.5 GM/DL (3.2-5.2); ALT/SGPT 64 U/L (12-78); BILIRUBIN,TOTAL 0.6 MG/DL (0.2-1.0); BLOOD UREA NITROGEN 6 MG/DL (7-18); CALCIUM LEVEL 8.4 MG/DL (8.5-10.1); CARBON DIOXIDE LEVEL 31 MEQ/L (21-32); CHLORIDE LEVEL 103 MEQ/L (98-107); CREATININE FOR GFR 0.88 MG/DL (0.70-1.30); GLUCOSE, FASTING 78 MG/DL (70-100); MAGNESIUM LEVEL 1.9 MG/DL (1.4-2.0); POTASSIUM SERUM 3.6 MEQ/L (3.5-5.1); SODIUM LEVEL 139 MEQ/L (136-145); TOTAL PROTEIN 7.3 GM/DL (6.4-8.2)
[2019-09-22 06:00] VITALS: BP 119/62
[2019-09-22] MEDS: levETIRAcetam 250MG TABLET (KEPPRA) PO SCH ×2 (08:42→21:04)
[2019-09-22 14:00] VITALS: BP 124/79
[2019-09-22] MEDS ORDERED: NS 1,000 ML IV ONE (14:00)
--- NOTE | 2019-09-22 18:32 | IPNPDOC ---
Text Note Date of Service The patient was seen on 09/22/19. NOTE Subjective: No any acute events overnight. Patient denies fever, chills, nausea, vomiting, diarrhea or dysuria Objective: VITAL SIGNS: Please see below. GENERAL: awake, alert, NAD HEENT: NCAT, anicteric sclera, LENI NECK: supple, no JVD CARDIOVASCULAR EXAMINATION: NS1S2, regular rate/rhythm RESPIRATORY EXAMINATION: CTA b/l, no wheezes/rales/rhonchi ABDOMINAL EXAMINATION: positive bowel sounds x 4, NT EXTREMITIES: no cyanosis, clubbing, edema, both arm tender on palpation, pulsations intact SKIN: warm, no rashes. NEUROLOGICAL EXAMINATION: AAO x 3, no motor/sensory deficits PSYCHIATRIC EXAMINATION: calm, normal affect Assessment/Plan Patient is 18 years old -Congolese male without significant past medical history presented to the hospital after he developed seizures. Patient stated that today during physical exercise he developed seizure, most likely genera lized according to multiple multiple eye witnesses. Seizure subsided after 5 mg Versed injection. Of note, in May 2019 patient was admitted to the hospital for hypothermia due to loss of consciousness in the field. Patient was found to have low glucose level of 40. Workup for insulinoma was negative. Patient was discharge with wildlife refuge manager follow-up. In emergency room patient was found to have negative CT head, lactic acid of 4.9, CPK of 1500, glucose level within normal limit. Patient denied fever, chills, nausea, vomiting, chest pain, palpitations, diarrhea or dysuria Problems (1) Seizure Unknown etiology for now History of admission in May suspicious for seizure, patient did have rhabdomyolysis and hypoglycemia Patient does not have electrolyte imbalance, patient is not hypertensive, he doesn't take any medications regular basis. Patient is not intoxicated Neurological exam is benign. EEG : No focal, lateralizing or epileptiform abnormalities were seen Patient is afebrile, he denied any recent head trauma CT head negative Dr. Tavares was consulted by phone and he recommended 500 mg Keppra by mouth twice a day MRI brain negative (2) Rhabdomyolysis 2/2 seizure Continue to monitor for signs and symptoms of compartment syndrome Creatinine today is improved to 0.7 CPK improved today Continue to monitor CPK Continue Aggressive IV hydration Adrenal insufficiency Patient 's am cortisol level is 4.1 ACTH wnl, I will proceed with cortisol stimulation test Patient is normotensive Normocytic anemia Peripheral smear showed hypochromic normocytic anemia. Could be secondary to adrenal insufficiency. Iron study within normal limit Continue to monitor Chest pain Resolved EKG was done and did not reveal any acute ischemic changes Troponin was negative Chest x-ray negative for acute cardiopulmonary diseases Continue to monitor VS,Fishbone, I+O VS, Fishbone, I+O Laboratory Tests 09/22/19 04:13 Vital Signs Date Time Temp Pulse Resp B/P (MAP) Pulse Ox O2 Delivery O2 Flow Rate FiO2 09/22/19 14:00 98.4 53 20 124/79 (94) 99 Room Air I&O- Last 24 Hours up to 6 AM 09/22/19 05:59 Intake Total 6990 ml Output Total 0 ml Balance 6990 ml ERIN CADENA DO September 22, 2019 18:32
[2019-09-22] MEDS: ENOXAPARIN 30MG/0.3ML SYRINGE (J1650 PER 10MG) SC SCH (21:04)
[2019-09-22 22:00] VITALS: BP 127/79
[2019-09-23] MEDS: NS 1,000 ML IV SCH ×2 (03:35→10:03)
[2019-09-23 04:45] LABS: HEMATOCRIT 41.1 % (42.0-52.0); HEMOGLOBIN 13.1 g/dl (13.5-17.5); MEAN CORPUSCULAR HEMOGLOBIN 26.4 pg (27.0-33.0); MEAN CORPUSCULAR HGB CONC 31.9 g/dl (32.0-36.5); MEAN CORPUSCULAR VOLUME 82.9 fl (80.0-96.0); PLATELET COUNT, AUTOMATED 224 10^3/uL (150-450); RED BLOOD COUNT 4.96 10^6/uL (4.30-6.10); WHITE BLOOD COUNT 4.2 10^3/uL (4.0-10.0)
[2019-09-23 05:07] LABS: ALBUMIN 3.4 GM/DL (3.2-5.2); ALT/SGPT 57 U/L (12-78); BILIRUBIN,TOTAL 0.3 MG/DL (0.2-1.0); BLOOD UREA NITROGEN 8 MG/DL (7-18); CALCIUM LEVEL 8.5 MG/DL (8.5-10.1); CARBON DIOXIDE LEVEL 34 MEQ/L (21-32); CHLORIDE LEVEL 106 MEQ/L (98-107); CREATININE FOR GFR 0.82 MG/DL (0.70-1.30); GLUCOSE, FASTING 94 MG/DL (70-100); MAGNESIUM LEVEL 1.8 MG/DL (1.4-2.0); POTASSIUM SERUM 4.1 MEQ/L (3.5-5.1); SODIUM LEVEL 143 MEQ/L (136-145)
[2019-09-23 06:00] VITALS: BP 123/65
[2019-09-23] MEDS ORDERED: COSYNTROPIN 0.25 MG/ML VIAL (J0834 PER 0.25MG) IV ONE (08:00)
[2019-09-23] MEDS: levETIRAcetam 250MG TABLET (KEPPRA) PO SCH (09:03)
[2019-09-23 14:00] VITALS: BP 142/74
[2019-09-23 14:21] LABS: HEMOGLOBIN A 98.1 % (96.4-98.8); HEMOGLOBIN A2 1.9 % (1.8-3.2); HGB SOLUBILITY Negative (Negative)
--- NOTE | 2019-09-23 18:27 | DS.PDOC ---
Discharge Summary General Date of Admission September 19, 2019 at 14:13 Date of Discharge 09/23/19 Discharge Summary PROCEDURES PERFORMED DURING STAY: [None]. ADMITTING DIAGNOSES: Seizure Rhabdomyolysis Adrenal insufficiency Normocytic anemia Chest pain DISCHARGE DIAGNOSES: Seizure Rhabdomyolysis Adrenal insufficiency Normocytic anemia Chest pain COMPLICATIONS/CHIEF COMPLAINT: Rhadbomyolysis,Seizure. HISTORY OF PRESENT ILLNESS:Patient is 18 years old -M[place] male without significant past medical history presented to the hospital after he developed seizures. Patient stated that today during physical exercise he developed seizure, most likely generalized according to multiple multiple eye witnesses. Seizure subsided after 5 mg Versed injection. Of note, in May 2019 patient was admitted to the hospital for hypothermia due to loss of consciousness in the field. Patient was found to have low glucose level of 40. Workup for insulinoma was negative. Patient was discharge with spice blender follow-up. In emergency room patient was found to have negative CT head, lactic acid of 4.9, glucose level within normal limit. Patient denied fever, chills, nausea, vomiting, chest pain, palpitations, diarrhea or dysuria HOSPITAL COURSE: During hospital stay following issue addressed (1) Seizure Unknown etiology for now History of admission in May suspicious for seizure, patient did have rhabdomyolysis and hypoglycemia Patient does not have electrolyte imbalance, patient is not hypertensive, he doesn't take any medications regular basis. Patient is not intoxicated Neurological exam is benign. EEG : No focal, lateralizing or epileptiform abnormalities were seen Patient is afebrile, he denied any recent head trauma CT head negative Dr. Tavares was consulted by phone and he recommended 500 mg Keppra by mouth twice a day MRI brain negative (2) Rhabdomyolysis 2/2 seizure CPK was elevated up to 50,000, patient received IV hydration with positive dynamic. Today CPK around 3000 Adrenal insufficiency Patient 's am cortisol level is 4.1 ACTH wnl, Cosyntropin test showed response as basal cortisol 3.2, 30 minutes 25.1, one hour 29.9. 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 Iron study within normal limit Chest pain Resolved EKG was done and did not reveal any acute ischemic changes Troponin was negative Chest x-ray negative for acute cardiopulmonary diseases Continue to monitor DISCHARGE MEDICATIONS: Please see below. ALLERGIES: Please see below. PHYSICAL EXAMINATION ON DISCHARGE: VITAL SIGNS: Please see below. GENERAL: awake, alert, NAD HEENT: NCAT, anicteric sclera, LENI NECK: supple, no JVD CARDIOVASCULAR EXAMINATION: NS1S2, regular rate/rhythm RESPIRATORY EXAMINATION: CTA b/l, no wheezes/rales/rhonchi ABDOMINAL EXAMINATION: positive bowel sounds x 4, NT EXTREMITIES: no cyanosis, clubbing, edema, both arm tender on palpation, pulsations intact SKIN: warm, no rashes. NEUROLOGICAL EXAMINATION: AAO x 3, no motor/sensory deficits PSYCHIATRIC EXAMINATION: calm, normal affect LABORATORY DATA: Please see below. IMAGING: [facility] NAME: DAWIT SALVADOR JR DATE OF : 2000 BUSINESS NUMBER: [id number] AGE: 18 SEX: M REPORT #: [id number] ROOM: [facility] TECHNOLOGIST: LESTER DOCTOR: ERIN CADENA DO Ordered for Date&Time: 09/17/19 1455 cc: [~ rep ct ivnm] Service Date&Time: 09/17/19 1820 This report is in Signed status. Interpretation performed by [facility]. Thank you for having your radiology procedures performed at [facility] RADIOLOGY REPORT Date&Time printed: [~ rep prt dt last] [~ rep prt tm last] Page 2 of 2 [place] [id number] RADIOLOGY REPORT This report is in Signed status. Interpretation performed by [facility]. Thank you for having your radiology procedures performed at [facility] RADIOLOGY REPORT Date&Time printed: [~ rep prt dt last] [~ rep prt tm last] Page 1 of 2 Exam: MR Head Without Contrast Exam date and time: 09/17/2019 6:20 PM Age: 18 years old Clinical indication: Other: Seizure TECHNIQUE: Imaging protocol: MR of the head without contrast. COMPARISON: CT Head without contrast 09/17/2019 12:51 PM FINDINGS: Brain: Normal. No acute infarct. No hemorrhage. No significant white matter disease. No edema. Ventricles: Normal. No ventriculomegaly. Bones/joints: Unremarkable. Soft tissues: Unremarkable. Sinuses: Normal as visualized. No acute sinusitis. Mastoid air cells: Normal as visualized. No mastoid effusion. Orbits: Unremarkable. Nasopharynx: Boggy nasal mucosa in the right nasal cavity. IMPRESSION: No acute intracranial abnormalities. Electronically signed by: Katelyn Brown On 09/17/2019 18:50:22 PM DD: KATELYN BROWN MD 09/17/191819 DT: TONIA 09/17/191849 DS: ELAINE 09/17/191849 [~ rep ct labl] PROGNOSIS: Fair ACTIVITY: [As tolerated]. DIET: Regular DISPOSITION: 01 Home, Self-Care. DISCHARGE INSTRUCTIONS: Drink plenty of fluid for next 34 days ITEMS TO FOLLOWUP ON ON OUTPATIENT: Follow-up with the aviation ordnance officer, neurologist, spice blender, PCP DISCHARGE CONDITION: [Stable]. TIME SPENT ON DISCHARGE: Greater than 20 minutes. Vital Signs/I&Os Vital Signs Date Time Temp Pulse Resp B/P (MAP) Pulse Ox O2 Delivery O2 Flow Rate FiO2 09/23/19 14:00 98.1 69 20 142/74 (96) 99 Room Air I&O- Last 24 Hours up to 6 AM 09/23/19 06:00 Intake Total 5420 ml Output Total 0 ml Balance 5420 ml Laboratory Data Labs 24H Laboratory Tests 2 09/22/19 19:52: Total Creatine Kinase 5518H 09/23/19 04:16: Total Creatine Kinase 3761H, Nucleated Red Blood Cells % (auto) 0.0, Anion Gap 3L, Calcium Level 8.5, Magnesium Level 1.8, Total Bilirubin 0.3, Aspartate Amino Transf (AST/SGOT) 88H, Alanine Aminotransferase (ALT/SGPT) 57, Alkaline Phosphatase 86, Total Protein 7.0, Albumin 3.4, Albumin/Globulin Ratio 0.9 09/23/19 08:00: Cortisol Response to Stimulation Cortisol Baseline 09/23/19 11:41: Total Creatine Kinase 3701H CBC/BMP Laboratory Tests 09/23/19 04:16 Microbiology Microbiology 09/19/19 Stool Occult Blood (SIOBHAN) - Final, Complete Discharge Medications Scheduled Levetiracetam (Keppra) 250 Mg Tablet, 500 MG PO BID Scheduled PRN Acetaminophen (Acetaminophen) 325 Mg Tablet, 650 MG PO Q6HP PRN for PAIN / FEVER Allergies Coded Allergies: No Known Allergies (Verified Allergy, Unknown, 06/05/19) ERIN CADENA DO September 23, 2019 18:27
== END 2019-09-23 15:52 | disposition home or self-care (01) | DRG 101 ==
LOC: EDBD 08:08 → M ED 08:08 → M ED INP 08:09 → ENRESERV 14:46 → M MSPAV 16:38 → OBSVTOIN 09-19 14:13
PROVIDERS: ADMIT Internal Medicine; ATTEND Internal Medicine
DX: R56.9 Unspecified convulsions (principal); M62.82 Rhabdomyolysis; E27.40 Unspecified adrenocortical insufficiency; R07.9 Chest pain, unspecified; D64.9 Anemia, unspecified

== ENCOUNTER 2019-10-16 02:24 | Emergency (ER) | payer OTHER ==
[~2019-10-16] VITALS: Ht 177.8 cm; Wt 74.5 kg
[~2019-10-16 02:24] MED LIST changes: +ACET1TAB55 PO; +KEPP250T5 PO
[2019-10-16 02:25] VITALS: BP 130/82
== END 2019-10-16 05:17 | disposition home or self-care (01) ==
LOC: M ED 02:24
DX: M67.432 Ganglion, left wrist (principal); Z79.899 Other long term (current) drug therapy

== ENCOUNTER 2020-06-19 02:14 | Emergency (ER) | payer OTHER ==
[~2020-06-19] VITALS: Ht 177.8 cm; Wt 74.9 kg
[2020-06-19 02:15] VITALS: BP 133/91
--- OUTSIDE RECORDS SUMMARY | 2020-06-19 02:20 | CCD ---
Author Author [facility] Organization [facility] Address Unknown Phone Unavailable Care Team Providers Care Pilot Control Operator Name Role Phone Paradise Hyman Unavailable Unavailable Yenni, Francisco MD Unavailable Unavailable Yenni, Francisco MD Unavailable Unavailable Yenni, Francisco MD Unavailable Unavailable Yenni, Francisco MD Unavailable Unavailable Yenni, Francisco MD Unavailable Unavailable Yenni, Francisco MD Unavailable Unavailable Yenni, Francisco MD Unavailable Unavailable Yenni, Francisco MD Unavailable Unavailable Yenni, Francisco Unavailable Unavailable Yenni, Francisco MD Unavailable Unavailable Yenni, Francisco MD Unavailable Unavailable Yenni, Francisco MD Unavailable Unavailable Yenni, Francisco MD Unavailable Unavailable Yenni, Francisco Unavailable Unavailable Yenni, Francisco Unavailable Unavailable Yenni, Francisco Unavailable Unavailable Yenni, Francisco Unavailable Unavailable Yenni, Francisco Unavailable Unavailable Yenni, Francisco Unavailable Unavailable Yenni, Francisco Unavailable Unavailable Yenni, Francisco Unavailable Unavailable Yenni, Francisco Unavailable Unavailable Yenni, Francisco Unavailable Unavailable Yenni, Francisco Unavailable Unavailable Yenni, Francisco Unavailable Unavailable Yenni, Francisco Unavailable Unavailable Yenni, Francisco Unavailable Unavailable Yenni, Francisco Unavailable Unavailable Yenni, Francisco Unavailable Unavailable Yenni, Francisco Unavailable Unavailable Yenni, Francisco Unavailable Unavailable Yenni, Francisco Unavailable Unavailable Yenni, Francisco Unavailable Unavailable Yenni, Francisco Unavailable Unavailable Yenni, Francisco Unavailable Unavailable Yenni, Farncisco Unavailable Unavailable Yenni, Francisco Unavailable Unavailable Yenni, Francisco Unavailable Unavailable Yenni, Francisco Unavailable Unavailable Yenni, Francisco Unavailable Unavailable Yenni, Francisco Unavailable Unavailable Yenni, Francisco Unavailable Unavailable Yenni, Francisco MD Unavailable Unavailable Yenni, Francisco MD Unavailable Unavailable Yenni, Francisco MD Unavailable Unavailable Yenni, Francisco MD Unavailable Unavailable Yenni, Francisco MD Unavailable Unavailable Yenni, Francisco MD Unavailable Unavailable Yenni, Francisco MD Unavailable Unavailable Yenni, Francisco MD Unavailable Unavailable Yenni, Francisco MD Unavailable Unavailable Yenni, Francisco MD Unavailable Unavailable Yenni, Francisco MD Unavailable Unavailable Yenni, Francisco MD Unavailable Unavailable Yenni, Francisco MD Unavailable Unavailable Yenni, Francisco MD Unavailable Unavailable Yenni, Francisco MD Unavailable Unavailable Yenni, Francisco MD Unavailable Unavailable Yenni, Francisco MD Unavailable Unavailable Yenni, Francisco MD Unavailable Unavailable Yenni, Francisco MD Unavailable Unavailable Yenni, Francisco MD Unavailable Unavailable Fish, Gricelda Polanco MD Unavailable Unavailable Fish, Gricelda Polanco MD Unavailable Unavailable Fish, Gricelda Polanco MD Unavailable Unavailable Fish, Gricelda Polanco MD Unavailable Unavailable Fish, Gricelda Polanco MD Unavailable Unavailable Fish, Gricelda Polanco MD Unavailable Unavailable Fish, Gricelda Polanco MD Unavailable Unavailable Fish, Gricelda Polanco MD Unavailable Unavailable Fish, Gricelda Polanco MD Unavailable Unavailable Fish, Gricelda Polanco MD Unavailable Unavailable Fish, Gricelda Polanco MD Unavailable Unavailable Fish, Gricelda Polanco MD Unavailable Unavailable Fish, Gricelda Polanco MD Unavailable Unavailable Fish, Gricelda Polanco MD Unavailable Unavailable Fish, Gricelda Polanco MD Unavailable Unavailable Fish, Gricelda Polanco MD Unavailable Unavailable Fish, Gricelda Polanco MD Unavailable Unavailable Gricelda Taylor MD Unavailable Unavailable Gricelda Taylor MD Unavailable Unavailable FishGricelda MD Unavailable Unavailable Fish, Gricelda Polanco MD Unavailable Unavailable Fish, Gricelda Polanco MD Unavailable Unavailable Fish, Gricelda Polanco MD Unavailable Unavailable Fish, Gricelda Polanco MD Unavailable Unavailable FishGricelda MD Unavailable Unavailable FishGricelda MD Unavailable Unavailable FishGricelda MD Unavailable Unavailable FishGricelda MD Unavailable Unavailable Fish, Gricelda Polanco MD Unavailable Unavailable Fish, Gricelda Polanco MD Unavailable Unavailable Fish, Gricelda Polanco MD Unavailable Unavailable Fish, Gricelda Polanco MD Unavailable Unavailable Fish, Gricelda Polanco MD Unavailable Unavailable FishGricelda MD Unavailable Unavailable FishGricelda MD Unavailable Unavailable FishGricelda MD Unavailable Unavailable Fish, Gricelda Polanco MD Unavailable Unavailable Fish, Gricelda Polanco MD Unavailable Unavailable Fish, Gricelda Polanco MD Unavailable Unavailable Fish, Gricelda Polanco MD Unavailable Unavailable Fish, B Sherri ALTMAN Unavailable Unavailable Fish, B Sherri ALTMAN Unavailable Unavailable Fish, B Sherri ALTMAN Unavailable Unavailable Fish, B Sherri ALTMAN Unavailable Unavailable Fish, B Sherri ALTMAN Unavailable Unavailable Fish, B Sherri ALTMAN Unavailable Unavailable Fish, B Sherri ALTMAN Unavailable Unavailable Fish, B Sherri ALTMAN Unavailable Unavailable Fish, B Sherri ALTMAN Unavailable Unavailable Fish, B Sherri ALTMAN Unavailable Unavailable Fish, B Sherri ALTMAN Unavailable Unavailable Fish, B Sherri ALTMAN Unavailable Unavailable Fish, B Sherri ALTMAN Unavailable Unavailable Fish, B Sherri ALTMAN Unavailable Unavailable Fish, B Sherri ALTMAN Unavailable Unavailable Fish, B Sherri ALTMAN Unavailable Unavailable Fish, B Sherri ALTMAN Unavailable Unavailable Fish, B Sherri ALTMAN Unavailable Unavailable Fish, B Sherri ALTMAN Unavailable Unavailable Fish, B Sherri ALTMAN Unavailable Unavailable Fish, B Sherri ALTMAN Unavailable Unavailable Fish, B Sherri ALTMAN Unavailable Unavailable Fish, B Sherri ALTMAN Unavailable Unavailable Fish, B Sherri ALTMAN Unavailable Unavailable COOK, B CRISTEL OPERATIONS BUSINESS PARTNER Unavailable Unavailable COOK, B CRISTEL OPERATIONS BUSINESS PARTNER Unavailable Unavailable COOK, B CRISTEL OPERATIONS BUSINESS PARTNER Unavailable Unavailable COOK, B CRISTEL OPERATIONS BUSINESS PARTNER Unavailable Unavailable COOK, B CRISTEL OPERATIONS BUSINESS PARTNER Unavailable Unavailable COOK, B CRISTEL OPERATIONS BUSINESS PARTNER Unavailable Unavailable COOK, B CRISTEL OPERATIONS BUSINESS PARTNER Unavailable Unavailable COOK, B CRISTEL OPERATIONS BUSINESS PARTNER Unavailable Unavailable COOK, B CRISTEL OPERATIONS BUSINESS PARTNER Unavailable Unavailable COOK, B CRISTEL OPERATIONS BUSINESS PARTNER Unavailable Unavailable COOK, B CRISTEL OPERATIONS BUSINESS PARTNER Unavailable Unavailable COOK, B CRISTEL OPERATIONS BUSINESS PARTNER Unavailable Unavailable COOK, B CRISTEL OPERATIONS BUSINESS PARTNER Unavailable Unavailable COOK, B CRISTEL OPERATIONS BUSINESS PARTNER Unavailable Unavailable COOK, B CRISTEL OPERATIONS BUSINESS PARTNER Unavailable Unavailable COOK, B CRISTEL OPERATIONS BUSINESS PARTNER Unavailable Unavailable COOK, B CRISTEL OPERATIONS BUSINESS PARTNER Unavailable Unavailable COOK, B CRISTEL OPERATIONS BUSINESS PARTNER Unavailable Unavailable COOK, B CRISTEL OPERATIONS BUSINESS PARTNER Unavailable Unavailable COOK, B CRISTEL OPERATIONS BUSINESS PARTNER Unavailable Unavailable COOK, B CRISTEL OPERATIONS BUSINESS PARTNER Unavailable Unavailable COOK, B CRISTEL OPERATIONS BUSINESS PARTNER Unavailable Unavailable COOK, B CRISTEL OPERATIONS BUSINESS PARTNER Unavailable Unavailable COOK, B CRISTEL OPERATIONS BUSINESS PARTNER Unavailable Unavailable COOK, B CRISTEL OPERATIONS BUSINESS PARTNER Unavailable Unavailable COOK, B CRISTEL OPERATIONS BUSINESS PARTNER Unavailable Unavailable COOK, B CRISTEL OPERATIONS BUSINESS PARTNER Unavailable Unavailable COOK, B CRISTEL OPERATIONS BUSINESS PARTNER Unavailable Unavailable COOK, B CRISTEL OPERATIONS BUSINESS PARTNER Unavailable Unavailable COOK, B CRISTEL OPERATIONS BUSINESS PARTNER Unavailable Unavailable COOK, B CRISTEL OPERATIONS BUSINESS PARTNER Unavailable Unavailable COOK, B CRISTEL OPERATIONS BUSINESS PARTNER Unavailable Unavailable COOK, B CRISTEL OPERATIONS BUSINESS PARTNER Unavailable Unavailable COOK, B CRISTEL OPERATIONS BUSINESS PARTNER Unavailable Unavailable COOK, B CRISTEL OPERATIONS BUSINESS PARTNER Unavailable Unavailable COOK, B CRISTEL OPERATIONS BUSINESS PARTNER Unavailable Unavailable COOK, B CRISTEL OPERATIONS BUSINESS PARTNER Unavailable Unavailable COOK, B CRISTEL OPERATIONS BUSINESS PARTNER Unavailable Unavailable COOK, B CRISTEL OPERATIONS BUSINESS PARTNER Unavailable Unavailable COOK, B CRISTEL OPERATIONS BUSINESS PARTNER Unavailable Unavailable COOK, B CRISTEL OPERATIONS BUSINESS PARTNER Unavailable Unavailable COOK, B CRISTEL OPERATIONS BUSINESS PARTNER Unavailable Unavailable COOK, B CRISTEL OPERATIONS BUSINESS PARTNER Unavailable Unavailable COOK, B CRISTEL OPERATIONS BUSINESS PARTNER Unavailable Unavailable COOK, B CRISTEL OPERATIONS BUSINESS PARTNER Unavailable Unavailable COOK, B CRISTEL OPERATIONS BUSINESS PARTNER Unavailable Unavailable COOK, B CRISTEL OPERATIONS BUSINESS PARTNER Unavailable Unavailable COOK, B CRISTEL OPERATIONS BUSINESS PARTNER Unavailable Unavailable COOK, B CRISTEL OPERATIONS BUSINESS PARTNER Unavailable Unavailable COOK, B CRISTEL OPERATIONS BUSINESS PARTNER Unavailable Unavailable COOK, B CRISTEL OPERATIONS BUSINESS PARTNER Unavailable Unavailable COOK, B CRISTEL OPERATIONS BUSINESS PARTNER Unavailable Unavailable COOK, B CRISTEL OPERATIONS BUSINESS PARTNER Unavailable Unavailable COOK, B CRISTEL OPERATIONS BUSINESS PARTNER Unavailable Unavailable COOK, B CRISTEL OPERATIONS BUSINESS PARTNER Unavailable Unavailable COOK, B CRISTEL OPERATIONS BUSINESS PARTNER Unavailable Unavailable COOK, B CRISTEL OPERATIONS BUSINESS PARTNER Unavailable Unavailable COOK, B CRISTEL OPERATIONS BUSINESS PARTNER Unavailable Unavailable COOK, B CRISTEL OPERATIONS BUSINESS PARTNER Unavailable Unavailable COOK, B CRISTEL OPERATIONS BUSINESS PARTNER Unavailable Unavailable COOK, B CRISTEL OPERATIONS BUSINESS PARTNER Unavailable Unavailable COOK, B CRISTEL OPERATIONS BUSINESS PARTNER Unavailable Unavailable COOK, B CRISTEL OPERATIONS BUSINESS PARTNER Unavailable Unavailable COOK, B CRISTEL OPERATIONS BUSINESS PARTNER Unavailable Unavailable Bereket, R Benton PT Unavailable Unavailable Bereket, R Benton PT Unavailable Unavailable Bereket, R Benton PT Unavailable Unavailable Bereket, R Benton PT Unavailable Unavailable Bereket, R Benton PT Unavailable Unavailable Bereket, R Benton PT Unavailable Unavailable Bereket, R Benton PT Unavailable Unavailable Bereket, R Benton PT Unavailable Unavailable Bereket, R Benton PT Unavailable Unavailable Bereket, R Benton PT Unavailable Unavailable Bereket, R Benton PT Unavailable Unavailable Bereket, R Benton PT Unavailable Unavailable Bereket, R Benton PT Unavailable Unavailable Bereket, R Benton PT Unavailable Unavailable Bereket, R Benton PT Unavailable Unavailable Bereket, R Benton PT Unavailable Unavailable Bereket, R Benton PT Unavailable Unavailable Bereket, R Benton PT Unavailable Unavailable Bereket, R Benton PT Unavailable Unavailable Bereket, R Benton PT Unavailable Unavailable Re-disclosure Warning The records that you are about to access may contain information from federally-assisted alcohol or drug abuse programs. If such information is present, then the following federally mandated warning applies: This information has been disclosed to you from records protected by federal confidentiality rules (42 CFR part 2). The federal rules prohibit you from making any further disclosure of this information unless further disclosure is expressly permitted by the written consent of the person to whom it pertains or as otherwise permitted by 42 CFR part 2. A general authorization for the release of medical or other information is NOT sufficient for this purpose. The Federal rules restrict any use of the information to criminally investigate or prosecute any alcohol or drug abuse patient.The records that you are about to access may contain highly sensitive health information, the redisclosure of which is protected by Article 27-F of the [facility] Public Health law. If you continue you may have access to information: Regarding HIV / AIDS; Provided by facilities licensed or operated by the [facility] Office of Mental Health; or Provided by the [facility] Office for People With Developmental Disabilities. If such information is present, then the following [facility] mandated warning applies: This information has been disclosed to you from confidential records which are protected by state law. State law prohibits you from making any further disclosure of this information without the specific written consent of the person to whom it pertains, or as otherwise permitted by law. Any unauthorized further disclosure in violation of state law may result in a fine or half-way sentence or both. A general authorization for the release of medical or other information is NOT sufficient authorization for further disc losure. Encounters Encounter Providers Location Date Indications Data Source(s ) Outpatient Attender: Francisco Hyman MD Main office - [place] 12/02/2019 11:00:00 AM EDT [facility] ([facility]) Outpatient Attender: Francisco Hyman MD Main office - [place] 10/29/2019 10:00:00 AM EDT [facility] ([facility]) Outpatient Attender: Benton Cuba PT [facility] 01:30:00 PM EDT - 10/08/2019 01:31:00 PM EDT [facility] Patient discharged. Outpatient Attender: Francisco Hyman MD Main office - [place] 10/01/2019 12:00:00 PM EDT [facility] ([facility]) Outpatient Attender: CRISTEL PATHAK OPERATIONS BUSINESS PARTNER Physical Therapy 07/31/2019 0 9:45:00 AM EDT [facility] ([facility] ) Outpatient Attender: CRISTEL PATHAK NP Physical Therapy 07/15/2019 0 9:15:00 AM EDT [facility] ([facility] ) Outpatient Attender: Sherri Taylor MD Physical Therapy 06/17 01:45:00 PM EST [facility] ([facility] ) Outpatient 06/16/2019 04:14:00 PM EST [facility] Medications Medication Brand Name Start Date Product Form Dose Route Admi nistrative Instructions Pharmacy Instructions Status Indications Reaction Description Data Source(s) zonisamide 100 MG Oral Capsule Zonisamide 12/02/2019 12:00:00 AM EDT ORAL active [facility] ([facility] ) Levetiracetam 500 MG Oral Tablet [Keppra] Keppra 10/01/2019 12:00 :00 AM EDT ORAL active [facility] ([facility] ) zonisamide 50 MG Oral Capsule Zonisamide 10/01/2019 12:00:00 AM EDT ORAL completed [facility] ([facility] ) 8 HR Acetaminophen 650 MG Extended Release Oral Tablet [Tyle nol] Tylenol 8 Hour 09/16/2019 12:00:00 AM EDT active [facility] ([facility] ) Freestyle Lite Test 06/17/2019 12:00:00 AM EST active [facility] ([facility] ) Freestyle Lancets 06/17/2019 12:00:00 AM EST active [facility] ([facility] ) Freestyle Lite Blood Glucose Monitoring System 06/17/2019 12:00:00 AM EST active [facility] ([facility] ) Insurance Providers Payer name Policy type / Coverage type Policy ID Covered constitution party ID Covered constitution party's relationship to alonzo Policy Alonzo Plan Information [facility] [id number] SP [id number] [place] [id number] S [id number] [employer] [facility] O [id number] S [id number] [facility] [employer] - O/P [id number] Problems, Conditions, and Diagnoses Code Display Name Description Problem Type Effective Dates Data Source(s) 59134290 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 Problem 09/16/2019 12:00:00 AM EDT [facility] ([facility] ) [id number] Numbness of lower limb Numbness of lower limb Problem 09/16/2019 12:00:00 AM EDT [facility] ([facility] ) [id number] Hypoglycemia Hypoglycemia Problem 06/17/2019 12:00:00 A M EST [facility] ([facility] ) Surgeries/Procedures Procedure Description Date Indications Data Source(s) ELECTROENCEPHALOGRAM W/REC AWAKE&ASLEEP 11/13/2019 12: 00:00 AM EDT [facility] ([facility] ) ELECTROENCEPHALOGRAM W/REC AWAKE&ASLEEP 11/13/2019 12: 00:00 AM EDT [facility] ([facility] ) Needle electromyography, each extremity, with related paraspinal areas, when performed, done with nerve conduction, amplitude and latency/velocity study; complete, five or more muscles studied, innervated by three or more nerves or four or more spinal levels (list separately in addition to the code for primary procedure). 09/16/2019 12:00:00 AM EDT [facility] ([facility], ) Needle electromyography, each extremity, with related paraspinal areas, when performed, done with nerve conduction, amplitude and latency/velocity study; complete, five or more muscles studied, innervated by three or more nerves or four or more spinal levels (list separately in addition to the code for primary procedure). 09/16/2019 12:00:00 AM EDT [facility] ([facility] ) [address]185 Nerve conduction studies 13 or more studies NEW 201209/16/2019 12:00:00 AM EDT [facility] ([facility] ) Results ID Date Data Source [id number] 05/31/2020 08:25:00 AM EST [facility] Name Value Range Interpretation Code Description Data Nadine rce(s) Supporting Document(s) SARS coronavirus 2 RNA Detected [facility] This lab was ordered by [facility] and reported by [facility]. Procedure Vital Signs ID Date Data Source UNK Name Value Range Interpretation Code Description Data Source(s) Body mass index (BMI) [Ratio] 24.5 kg/m2 24.5 k g/m2 [facility] ([facility] ) Body weight 171.00 [lb_av] 171.00 [lb_av] [facility] ([facility] ) Body height [Percentile] 56 % 56 % [facility] ([facility] ) Body height 70 [in_i] 70 [in_i] [facility] ([facility] ) 5'10" Heart rate 72 /min 72 /min [facility] ([facility] ) Diastolic blood pressure 80 mm[Hg] 80 mm[Hg] [facility] ([facility] ) Systolic blood pressure 120 mm[Hg] 120 mm[Hg] M [facility] ([facility] ) Oxygen saturation in Arterial blood by Pulse oximetry 98 % 98 % [facility] ([facility] ) Body mass index (BMI) [Ratio] 24.0 kg/m2 24.0 k g/m2 [facility] ([facility] ) Body weight 167.00 [lb_av] 167.00 [lb_av] [facility] ([facility] ) Body height 70 [in_i] 70 [in_i] [facility] ([facility] ) 5'10" Heart rate 76 /min 76 /min [facility] ([facility] ) Diastolic blood pressure 84 mm[Hg] 84 mm[Hg] [facility] ([facility] ) Systolic blood pressure 124 mm[Hg] 124 mm[Hg] M [facility] ([facility] ) Oxygen saturation in Arterial blood by Pulse oximetry 99 % 99 % [facility] ([facility] ) Body mass index (BMI) [Ratio] 24.1 kg/m2 24.1 k g/m2 [facility] ([facility] ) Body weight 168.12 [lb_av] 168.12 [lb_av] [facility] ([facility] ) Body height 70 [in_i] 70 [in_i] [facility] ([facility] ) 5'10" Heart rate 60 /min 60 /min [facility] ([facility] ) Diastolic blood pressure 64 mm[Hg] 64 mm[Hg] [facility] ([facility] ) Systolic blood pressure 114 mm[Hg] 114 mm[Hg] M [facility] ([facility] ) Oxygen saturation in Arterial blood by Pulse oximetry 97 % 97 % [facility] ([facility] ) Body mass index (BMI) [Ratio] 24.5 kg/m2 24.5 k g/m2 [facility] ([facility] ) Body weight 171.00 [lb_av] 171.00 [lb_av] FRANKLIN Padilla ([facility] ) Body height 70 [in_i] 70 [in_i] GREG ([facility] ) 5'10" Heart rate 64 /min 64 /min GREG ([facility] ) Diastolic blood pressure 64 mm[Hg] 64 mm[Hg] GREG ([facility] ) Systolic blood pressure 132 mm[Hg] 132 mm[Hg] Vanna OCONNOR ([facility] )
[2020-06-19] MEDS ORDERED: [UNRECOGNIZED DRUG - OTHER] (02:25)
[2020-06-19] MEDS ORDERED: AMOX500C PO ×2 (02:30→02:34)
[2020-06-19] MEDS ORDERED: NEOM10DR2 OT ×2 (02:31→02:34)
--- OUTSIDE RECORDS SUMMARY | 2020-06-19 02:46 | CCD ---
Author Author [facility] Organization [facility] Address Unknown Phone Unavailable Care Team Providers Care Revenue Stamper Name Role Phone Paradise Hyman Unavailable Unavailable Yenni, Francisco MD Unavailable Unavailable Yenni, Francisco MD Unavailable Unavailable Yenni, Franicsco ALTMAN Unavailable Unavailable Yenni, Francisco ALTMAN Unavailable Unavailable Yenni, Francisco ALTMAN Unavailable Unavailable Yenni, Francisco ALTMAN Unavailable Unavailable Yenni, Francisco MD Unavailable Unavailable Yenni, Francisco ALTMAN Unavailable Unavailable Yenni, Francisco MD Unavailable Unavailable [...] Unavailable Unavailable Yenni, Francisco MD Unavailable Unavailable Yneni, Francisco MD Unavailable Unavailable Yenni, Francisco MD [...] Sherri ALTMAN Unavailable Unavailable COOK, B CRISTEL CARRIAGE RIDER Unavailable Unavailable COOK, B CRISTEL CARRIAGE RIDER Unavailable Unavailable COOK, B CRISTEL CARRIAGE RIDER Unavailable Unavailable COOK, B CRISTEL CARRIAGE RIDER Unavailable Unavailable COOK, B CRISTEL CARRIAGE RIDER Unavailable Unavailable COOK, B CRISTEL CARRIAGE RIDER Unavailable Unavailable COOK, B CRISTEL CARRIAGE RIDER Unavailable Unavailable COOK, B CRISTEL CARRIAGE RIDER Unavailable Unavailable COOK, B CRISTEL CARRIAGE RIDER Unavailable Unavailable COOK, B CRISTEL CARRIAGE RIDER Unavailable Unavailable COOK, B CRISTEL CARRIAGE RIDER Unavailable Unavailable COOK, B CRISTEL CARRIAGE RIDER Unavailable Unavailable COOK, B CRISTEL CARRIAGE RIDER Unavailable Unavailable COOK, B CRISTEL CARRIAGE RIDER Unavailable Unavailable COOK, B CRISTEL CARRIAGE RIDER Unavailable Unavailable COOK, B CRISTEL CARRIAGE RIDER Unavailable Unavailable COOK, B CRISTEL CARRIAGE RIDER Unavailable Unavailable COOK, B CRISTEL CARRIAGE RIDER Unavailable Unavailable COOK, B CRISTEL CARRIAGE RIDER Unavailable Unavailable COOK, B CRISTEL CARRIAGE RIDER Unavailable Unavailable COOK, B CRISTEL CARRIAGE RIDER Unavailable Unavailable COOK, B CRISTEL CARRIAGE RIDER Unavailable Unavailable COOK, B CRISTEL CARRIAGE RIDER Unavailable Unavailable COOK, B CRISTEL CARRIAGE RIDER Unavailable Unavailable COOK, B CRISTEL CARRIAGE RIDER Unavailable Unavailable COOK, B CRISTEL CARRIAGE RIDER Unavailable Unavailable COOK, B CRISTEL CARRIAGE RIDER Unavailable Unavailable COOK, B CRISTEL CARRIAGE RIDER Unavailable Unavailable COOK, B CRISTEL CARRIAGE RIDER Unavailable Unavailable COOK, B CRISTEL CARRIAGE RIDER Unavailable Unavailable COOK, B CRISTEL CARRIAGE RIDER Unavailable Unavailable COOK, B CRISTEL CARRIAGE RIDER Unavailable Unavailable COOK, B CRISTEL CARRIAGE RIDER Unavailable Unavailable COOK, B CRISTEL CARRIAGE RIDER Unavailable Unavailable COOK, B CRISTEL CARRIAGE RIDER Unavailable Unavailable COOK, B CRISETL CARRIAGE RIDER Unavailable Unavailable COOK, B CRISTEL CARRIAGE RIDER Unavailable Unavailable COOK, B CRISTEL CARRIAGE RIDER Unavailable Unavailable COOK, B CRISTEL CARRIAGE RIDER Unavailable Unavailable COOK, B CRISTEL CARRIAGE RIDER Unavailable Unavailable COOK, B CRISTEL CARRIAGE RIDER Unavailable Unavailable COOK, B CRISTEL CARRIAGE RIDER Unavailable Unavailable COOK, B CRISTEL CARRIAGE RIDER Unavailable Unavailable COOK, B CRISTEL CARRIAGE RIDER Unavailable Unavailable COOK, B CRISTEL CARRIAGE RIDER Unavailable Unavailable COOK, B CRISTEL CARRIAGE RIDER Unavailable Unavailable COOK, B CRISTEL CARRIAGE RIDER Unavailable Unavailable COOK, B CRISTEL CARRIAGE RIDER Unavailable Unavailable COOK, B CRISTEL CARRIAGE RIDER Unavailable Unavailable COOK, B CRISTEL CARRIAGE RIDER Unavailable Unavailable COOK, B CRISTEL CARRIAGE RIDER Unavailable Unavailable COOK, B CRISTEL CARRIAGE RIDER Unavailable Unavailable COOK, B CRISTEL CARRIAGE RIDER Unavailable Unavailable COOK, B CRISTEL CARRIAGE RIDER Unavailable Unavailable COOK, B CRISTEL CARRIAGE RIDER Unavailable Unavailable COOK, B CRISTEL CARRIAGE RIDER Unavailable Unavailable COOK, B CRISTEL CARRIAGE RIDER Unavailable Unavailable COOK, B CRISTEL CARRIAGE RIDER Unavailable Unavailable COOK, B CRISTEL CARRIAGE RIDER Unavailable Unavailable COOK, B CRISTEL CARRIAGE RIDER Unavailable Unavailable COOK, B CRISTEL CARRIAGE RIDER Unavailable Unavailable COOK, B CRISTEL CARRIAGE RIDER Unavailable Unavailable COOK, B CRISTEL CARRIAGE RIDER Unavailable Unavailable COOK, B CRISTEL CARRIAGE RIDER Unavailable Unavailable Bereket, R Benton PT Unavailable [...] is protected by Article 27-F of the [facility] Public Health law. If you continue you may have access to information: Regarding HIV / AIDS; Provided by facilities licensed or operated by the [facility] Office of Mental Health; or Provided by the [facility] Office for People With Developmental Disabilities. If such information is present, then the following [facility] mandated warning applies: This information has been [...] law may result in a fine or intermediate sentence or both. A general authorization for the release of medical or other information is NOT sufficient authorization for further disc losure. Encounters Encounter Providers Location Date Indications Data Source(s ) Outpatient Attender: Francisco Hyman MD [place] [facility] [place] 12/02/2019 11:00:00 AM EDT [facility] ([facility] Outpatient Attender: Francisco Hyman MD [facility] [place] 10/29/2019 10:00:00 AM EDT [facility] ([facility]) Outpatient Attender: Benton Cuba PT [facility] 01:30:00 PM EDT - 10/08/2019 01:31:00 PM EDT [facility] Patient discharged. Outpatient Attender: Francisco Hyman MD Main office - [place] 10/01/2019 12:00:00 PM EDT [facility] ([facility]) Outpatient Attender: CRISTEL PATHAK CARRIAGE RIDER Physical Therapy 07/31/2019 0 9:45:00 AM EDT [facility] ([facility] ) Outpatient Attender: CRISTEL PATHAK NP Physical Therapy 07/15/2019 0 9:15:00 AM EDT [facility] ([facility] ) Outpatient Attender: Sherri Taylor MD Physical Therapy 06/17 01:45:00 PM EST [facility] ([facility]) Outpatient 06/16/2019 04:14:00 PM EST [facility] Imaging Medications Medication Brand Name Start Date Product Form Dose Route Admi nistrative Instructions Pharmacy Instructions Status Indications Reaction Description Data Source(s) zonisamide 100 MG Oral Capsule Zonisamide 12/02/2019 12:00:00 AM EDT ORAL active [facility] ([facility] ) Levetiracetam 500 MG Oral Tablet [Keppra] Keppra 10/01/2019 12:00 :00 AM EDT ORAL active [facility] ([facility] ) zonisamide 50 MG Oral Capsule Zonisamide 10/01/2019 12:00:00 AM EDT ORAL completed [facility] ([facility], ) 8 HR Acetaminophen 650 MG Extended Release Oral Tablet [Tyle nol] Tylenol 8 Hour 09/16/2019 12:00:00 AM EDT active [facility] ([facility] ) Freestyle Lite Test 06/17/2019 12:00:00 AM EST active [facility] ([facility] ) Freestyle Lancets 06/17/2019 12:00:00 AM EST active [facility] ([facility] ) Freestyle Lite Blood Glucose Monitoring System 06/17/2019 12:00:00 AM EST active [facility] ([facility] ) Insurance Providers Payer name Policy type / Coverage type Policy ID Covered constitution party ID Covered constitution party's relationship to alonzo Policy Alonzo Plan Information [facility] ACTIVE DUTY [id number] SP [id number] [facility] [id number] S [id number] HUMANA [facility] REG O [id number] S [id number] [facility] HUMANA - O/P [id number] 18 [id number] Problems, Conditions, and Diagnoses Code Display Name Description Problem Type Effective Dates Data Source(s) 46975669 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 Problem 09/16/2019 12:00:00 AM EDT [facility] ([facility] ) [id number] Numbness of lower limb Numbness of lower limb Problem 09/16/2019 12:00:00 AM EDT [facility] ([facility] ) [id number] Hypoglycemia Hypoglycemia Problem 06/17/2019 12:00:00 A M EST [facility] ([facility] ) Surgeries/Procedures Procedure Description Date Indications Data Source(s) ELECTROENCEPHALOGRAM W/REC AWAKE&ASLEEP 11/13/2019 12: 00:00 AM EDT [facility] ([facility] ) ELECTROENCEPHALOGRAM W/REC AWAKE&ASLEEP 11/13/2019 12: 00:00 AM EDT [facility] ([facility] ) Needle electromyography, each extremity, with related paraspinal areas, when performed, done with nerve conduction, amplitude and latency/velocity study; complete, five or more muscles studied, innervated by three or more nerves or four or more spinal levels (list separately in addition to the code for primary procedure). 09/16/2019 12:00:00 AM EDT [facility] T ([facility], ) Needle electromyography, each extremity, with related paraspinal areas, when performed, done with nerve conduction, amplitude and latency/velocity study; complete, five or more muscles studied, innervated by three or more nerves or four or more spinal levels (list separately in addition to the code for primary procedure). 09/16/2019 12:00:00 AM EDT [facility] ([facility], ) [address]13 Nerve conduction studies 13 or more studies NEW 201209/16/2019 12:00:00 AM EDT [facility] ([facility] ) Results ID Date Data Source [id number] 05/31/2020 08:25:00 AM EST [facility] Name Value Range Interpretation Code Description Data Nadine rce(s) Supporting Document(s) SARS coronavirus 2 RNA Detected [facility] This lab was ordered by [facility] Laboratory and reported by [facility]. Procedure Vital Signs ID Date Data Source UNK Name Value Range Interpretation Code Description Data Source(s) Body mass index (BMI) [Ratio] 24.5 kg/m2 24.5 k g/m2 [facility] ([facility] ) Body weight 171.00 [lb_av] 171.00 [lb_av] [facility] ([facility] ) Body height [Percentile] 56 % 56 % [facility] ([facility] ) Body height 70 [in_i] 70 [in_i] [facility] ([facility] ) 5'10" Heart rate 72 /min 72 /min [facility] ([facility] ) Diastolic blood pressure 80 mm[Hg] 80 mm[Hg] [facility] ([facility] ) Systolic blood pressure 120 mm[Hg] 120 mm[Hg] M [facility]ENT ([facility] ) Oxygen saturation in Arterial blood by Pulse oximetry 98 % 98 % [facility] ([facility] ) Body mass index (BMI) [Ratio] 24.0 kg/m2 24.0 k g/m2 [facility] ([facility] ) Body weight 167.00 [lb_av] 167.00 [lb_av] [facility] T ([facility] ) Body height 70 [in_i] 70 [in_i] [facility] ([facility] ) 5'10" Heart rate 76 /min 76 /min [facility] ([facility] ) Diastolic blood pressure 84 mm[Hg] 84 mm[Hg] [facility] ([facility] ) Systolic blood pressure 124 mm[Hg] 124 mm[Hg] M [facility] ([facility] ) Oxygen saturation in Arterial blood by Pulse oximetry 99 % 99 % [facility] ([facility] ) Body mass index (BMI) [Ratio] 24.1 kg/m2 24.1 k g/m2 [facility] ([facility] ) Body weight 168.12 [lb_av] 168.12 [lb_av] [facility] T ([facility] ) Body height 70 [in_i] 70 [in_i] [facility] ([facility] ) 5'10" Heart rate 60 /min 60 /min [facility] ([facility] ) Diastolic blood pressure 64 mm[Hg] 64 mm[Hg] [facility] ([facility] ) Systolic blood pressure 114 mm[Hg] 114 mm[Hg] M [facility] ([facility] ) Oxygen saturation in Arterial blood by Pulse oximetry 97 % 97 % [facility] ([facility] ) Body mass index (BMI) [Ratio] 24.5 kg/m2 24.5 k g/m2 [facility] ([facility] ) Body weight 171.00 [lb_av] 171.00 [lb_av] FRANKLIN Padilla ([facility] ) Body height 70 [in_i] 70 [in_i] GREG ([facility] ) 5'10" Heart rate 64 /min 64 /min GREG ([facility] ) Diastolic blood pressure 64 mm[Hg] 64 mm[Hg] GREG ([facility] ) Systolic blood pressure 132 mm[Hg] 132 mm[Hg] Vanna OCONNOR ([facility] )
== END 2020-06-19 02:48 | disposition home or self-care (01) ==
LOC: M ED 02:14
DX: H66.92 Otitis media, unspecified, left ear (principal); H60.92 Unspecified otitis externa, left ear

== ENCOUNTER 2020-11-27 11:33 | Emergency (ER) | payer OTHER ==
[~2020-11-27] VITALS: Ht 177.8 cm; Wt 72.7 kg
[~2020-11-27 11:33] MED LIST changes: +AMOX500C PO; +NEOM10DR2 OT; +[UNRECOGNIZED DRUG - OTHER]
[2020-11-27] MEDS ORDERED: KEPP1TAB PO (11:43)
[2020-11-27] MEDS ORDERED: ZONI50CA11 PO (11:44)
[2020-11-27 12:08] LABS: BASO % 0.5 % (0.0-1.0); EOS # 0.2 10^3/uL (0.0-0.5); EOS % 4.1 % (0.0-3.0); HEMATOCRIT 40.2 % (42.0-52.0); HEMOGLOBIN 12.9 g/dl (13.5-17.5); LYMPH # 1.6 10^3/uL (1.5-5.0); LYMPH % 37.5 % (24.0-44.0); MEAN CORPUSCULAR HEMOGLOBIN 26.4 pg (27.0-33.0); MEAN CORPUSCULAR HGB CONC 32.1 g/dl (32.0-36.5); MEAN CORPUSCULAR VOLUME 82.4 fl (80.0-96.0); MONO # 0.4 10^3/uL (0.0-0.8); MONO % 9.8 % (2.0-8.0); NEUTROPHILS # 2.1 10^3/uL (1.5-8.5); NEUTROPHILS % 47.9 % (36.0-66.0); PLATELET COUNT, AUTOMATED 189 10^3/uL (150-450); RED BLOOD COUNT 4.88 10^6/uL (4.30-6.10); WHITE BLOOD COUNT 4.4 10^3/uL (4.0-10.0)
[2020-11-27 12:39] LABS: BLOOD UREA NITROGEN 11 MG/DL (7-18); CALCIUM LEVEL 8.9 MG/DL (8.5-10.1); CARBON DIOXIDE LEVEL 33 MEQ/L (21-32); CHLORIDE LEVEL 99 MEQ/L (98-107); CK-MB VALUE MASS < 1.0 NG/ML (<3.6); CPK CREATINE PHOSPHOKINASE 174 U/L (39-308); CREATININE FOR GFR 0.97 MG/DL (0.70-1.30); GLOMERULAR FILTRATION RATE > 60.0 (>60); GLUCOSE, FASTING 103 MG/DL (70-100); MB/CK RELATIVE INDEX 0.57 (< OR =4); POTASSIUM SERUM 3.8 MEQ/L (3.5-5.1); SODIUM LEVEL 137 MEQ/L (136-145); THYROID STIMULATING HORMONE 0.587 uIU/ML (0.358-3.740); TROPONIN I < 0.02 NG/ML (< 0.10)
--- NOTE | 2020-11-27 12:41 | REP ---
INDICATION: syncope. COMPARISON: Comparison CT study of the brain is from September 17, 2019.. TECHNIQUE: Helical scanning is acquired. 5 mm axial images were reformatted. Coronal MPR images were generated. FINDINGS: Bone window settings demonstrate an intact bony calvarium. There is no evidence of skull fracture or incidental bony calvarial lesion. The visualized paranasal sinuses appear clear. No intraorbital abnormality is seen. On soft tissue window setting images; the lateral, third, and fourth ventricles are normal in size and position. Pruitt-white differentiation pattern is normal above and below the tentorium. There are is no evidence of intracranial hemorrhage. No mass, edema, infarction, or midline shift is seen. No extra-axial fluid collection is appreciated. IMPRESSION: Negative noncontrast head CT. <Electronically signed by Michael Hoyt > 11/27/20 [id number]
[2020-11-27 14:15] VITALS: BP 124/55
--- NOTE | 2020-11-27 21:30 | ECGEPIP ---
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
== END 2020-11-27 14:31 | disposition home or self-care (01) ==
LOC: M ED 11:33 → EDBD 11:33 → M ED 14:31
DX: R55 Syncope and collapse (principal); R56.9 Unspecified convulsions; Z79.899 Other long term (current) drug therapy

== ENCOUNTER 2021-03-22 03:19 | Emergency (ER) | payer OTHER ==
[~2021-03-22] VITALS: Ht 177.8 cm; Wt 72.7 kg
[~2021-03-22 03:19] MED LIST changes: +KEPP1TAB PO; +ZONI50CA11 PO
--- OUTSIDE RECORDS SUMMARY | 2021-03-22 03:23 | CCD ---
Author Author [facility] Organization [facility] Address Unknown Phone Unavailable Care Team Providers Care Gate Supervisor Name Role Phone Erlin, Brittney Bejarano MD Unavailable Unavailable Erlin, Brittney Bejarano MD Unavailable Unavailable Erlin, Brittney Bejarano MD Unavailable Unavailable Erlin, Brittney Bejarano MD Unavailable Unavailable Erlin, Brittney Bejarano MD Unavailable Unavailable Erlin, Brittney Bejarano MD Unavailable Unavailable Erlin, Brittney Bejarano MD Unavailable Unavailable Erlin, Brittney Bejarano MD Unavailable Unavailable Erlin, Brittney Bejarano MD Unavailable Unavailable Erlin, Brittney Bejarano MD Unavailable Unavailable Erlin, Brittney Beajrano MD Unavailable Unavailable Erlin, Brittney Bejarnao MD Unavailable Unavailable Erlin, Brittney Bejarano MD Unavailable Unavailable Erlin, Brittney Bejarano MD Unavailable Unavailable Erlin, Brittney Bejarano MD Unavailable Unavailable Re-disclosure Warning The records that [...] is protected by Article 27-F of the [facility] Public Health law. If you continue you may have access to information: Regarding HIV / AIDS; Provided by facilities licensed or operated by the [facility] Office of Mental Health; or Provided by the [facility] Office for People With Developmental Disabilities. If such information is present, then the following [facility] mandated warning applies: This information [...] law may result in a fine or group home sentence or both. A general authorization for the release of medical or other information is NOT sufficient authorization for further disc losure. Encounters Encounter Providers Location Date Indications Data Source(s ) Outpatient Referrer: Darci Kern MD [email or web address] 2020 08:21:06 AM EDT - 12/16/2020 11:59:00 PM EDT [facility] Patient discharged. Medications No Information Insurance Providers Payer name Policy type / Coverage type Policy ID Covered libertarian ID Covered libertarian's relationship to laguerre Policy Laguerre Plan Information [facility] ACTIVE DUTY [id number] SP [id number] [employer] [id number] [facility] [id number] COMMERCIAL GENERIC [id number] [facility] [id number] S [id number] HUMANA [facility] REG O [id number] S [id number] [facility] HUMANA - O/P [id number] 18 [id number] Problems, Conditions, and Diagnoses Code Display Name Description Problem Type Effective Dates Data Source(s) R00.2 Palpitations Palpitations Diagnosis 12/16/2020 08:21:06 A M EDT [facility] Surgeries/Procedures Procedure Description Date Indications Data Source(s) ECHO TTHRC R-T 2D W/WOM-MODE COMPL SPEC&COLR DOP <td>E CHOCARDIOGRAM TRANSTHORACIC</td><td>Routine</td><td>12/16/2020 9:08 AM EDT</td><td> Palpitations</td><td> </td> 12/16/2020 09:08:57 AM EDT Palpitations [facility] Palpitations Results ID Date Data Source [id number] 12/16/2020 12:52:14 PM EDT [facility] Name Value Range Interpretation Code Description Data Nadine rce(s) Supporting Document(s) &PDF [facility] EZDAMz4aKeNLKuQt63/PMXpaWPOrz6CfZEpzQAo9OWkeMIBcG2EfhYcyRHOURr4NHfzSVUKABUpPQbVS 0b3 [file] 4gq5MPodlGrettVXkt+H98D4gh/Dh/QJUHzSe2o4rLurlzWqog84TX/GbkzgMXwRR/Bl/Cn++ya9hK Mtn6hW0jj2FBvIuJbUgHH+ze7d4jXO4pHLLWZ9VDyvbXW5IdF73NPqkadbQfZtLFTKV6yUgBoHnCVQQ1 tT2STIzU+VIKsQD9DmJd+wNjjFf4UA7LcuJZ9C5gIS R/2lqSu0JWjBGguxk9abbzOjFpYVmWnpFGllQI7TPCtrl+KfwMfgW/Jf9+B+/Ap/HDYUk0PudtTV35AR 1y09zaO0kn9jRvfH+B6WDI1nB1K91F5lGmZ9hPWmuFzqA28U6zWXfWBjKgqDxuf98ENEpvcYYkjtKwTD /fAd7GLKKc1EolbcZq3xwvMbcNPdHNXDv1w0XwmPlb PiE+L/4utF44E9ei6ZnS8BvruLJM2U2hzf8Kdl6rwyHf39H+wpHa6El6KOey5FgSA+AhLMAh+C5+IIjC auOE2iK26VriJn5JQbKmeXPFwyEB/rvGzohbh8L9cADOlFT/t2XEm0Y4kBbFP1SD+DKRuU0rHHMLOT6W U3QSGAWP7BKEvKAgDC5lw3MFceKg50+mfJgPHXiSPU RHpmr0mXSlQN1kVjOAR3dp5rf6LS6WEhhe5Nq5ycetDocexrrBAXv+AVThHTo/t3VP1pgiegujsLoY8y YCwCaZ84l2AN9snXyEJjVb0+O2nuK1rZ3J/knyruMklEpyYBxbIW6srIBz79Av3GsfYjh97Tm8IsyK2f IezAcFxNRbVce9r+bc1DBQYK9vyl50H6QAmSDBf7lB lqHtLrIBLGsxSfj7gVjxdr4V+TimBX7kUm1Sfnpp7B5Q9ZdH5V0c90ytIu3riTk3WGAl73tfp0qS3vv8 t/lrwdCOq3xogrroysWbBnRejtl6xejBsScYGbevP1pcBf2W7gOzymjYdD/g+Ix9l9wncjXquAAdjxrM gz+UB8/Jv45gTInztO2oIKpSkzNTy0qECgavXv7vNF 9SipQCJV/QUoASZlCawuUSENlTwQ7ef/i/hMvxDz7dEm+LFl7A+José/4LVNbonu0Eg6OovR7gc7WsCQu [file] ICAgICAgICAgICAgICAgICAgICAgICAgICAgICAgIC AgICAgICAgICAgICAgICAgICAgICAgICAgICAgICAgICAgICAgICAgICAgICAgICAgICAgICAgICAgIC AgDQogICAgICAgICAgICAgICAgICAgICAgICAgICAgICAgICAgICAgICAgICAgICAgICAgICAgICAgIC AgICAgICAgICAgICAgICAgICAgICAgICAgICAgICAg ICAgICAgICAgICAgDQogICAgICAgICAgICAgICAgICAgICAgICAgICAgICAgICAgICAgICAgICAgICAg ICAgICAgICAgICAgICAgICAgICAgICAgICAgICAgICAgICAgICAgICAgICAgICAgICAgICAgDQogICAg ICAgICAgICAgICAgICAgICAgICAgICAgICAgICAgIC AgICAgICAgICAgICAgICAgICAgICAgICAgICAgICAgICAgICAgICAgICAgICAgICAgICAgICAgICAgIC AgICAgDQogICAgICAgICAgICAgICAgICAgICAgICAgICAgICAgICAgICAgICAgICAgICAgICAgICAgIC AgICAgICAgICAgICAgICAgICAgICAgICAgICAgICAg ICAgICAgICAgICAgICAgDQogICAgICAgICAgICAgICAgICAgICAgICAgICAgICAgICAgICAgICAgICAg ICAgICAgICAgICAgICAgICAgICAgICAgICAgICAgICAgICAgICAgICAgICAgICAgICAgICAgICAgDQog ICAgICAgICAgICAgICAgICAgICAgICAgICAgICAgIC AgICAgICAgICAgICAgICAgICAgICAgICAgICAgICAgICAgICAgICAgICAgICAgICAgICAgICAgICAgIC AgICAgICAgDQogICAgICAgICAgICAgICAgICAgICAgICAgICAgICAgICAgICAgICAgICAgICAgICAgIC AgICAgICAgICAgICAgICAgICAgICAgICAgICAgICAg ICAgICAgICAgICAgICAgICAgDQogICAgICAgICAgICAgICAgICAgICAgICAgICAgICAgICAgICAgICAg ICAgICAgICAgICAgICAgICAgICAgICAgICAgICAgICAgICAgICAgICAgICAgICAgICAgICAgICAgICAg DQogICAgICAgICAgICAgICAgICAgICAgICAgICAgIC AgICAgICAgICAgICAgICAgICAgICAgICAgICAgICAgICAgICAgICAgICAgICAgICAgICAgICAgICAgIC KdDRYkASQtFRNrEJo4U6rzMSHlVRKtOJ1dXCu7Hs5+OJuZSoJtOCK7bzGykP6FBC1jr4PjYUglJTZme7 DtFAq6ZP6NCWZxINfjBA1SUXpfjn9NRPEkBYLbrKWZ z3plMsRpMEB3AYVlVbobXC1PNITcA0adtcDyQKOwFIXMPRihEMSCZGfbACEZXF5SXrAkQ1BuaD08KJKY Cj4+CAbpmyNzPntQAvGhFDOlf5HrGIm4CV1MJXLzSSlrDP5QEQJeqO1pRPsdPF6MLaB0MVFiENKIFmKx W21bvPKlIMj3M2VtFcYsAWGaLxrwODIzZZcnNiZjAD MgWyBdDQogID4+ID4+IXvyBW1GUYxwhyWfFJRcAc0PGGVcPDX3LWQjrDXoGFXkPASTQTfcBJ7SjWKxBV S3zM7sTStyQAMbTOHlP8mFOcYobDbxUY78jThxtzRgrRJoUPl+Uh1EOR0ye1CqORb5uqBbBVlzKWYaMS jeRHRmOKDoBDRhQIY3SLC6LXKGZwYbYLSiYSScDDug VBJjGGKklq6CNXOmEIZ9StJzIkMbVMZtEPRzLFumBTXqQKA4DdXmSKZtRXUyXO4IWuWwPUBpKVMpWTHj URPiBWJdyt9YWMEoYYIzLnzuJdQsAWEjBPXvSOysCHFrEAAvLRBxNMSgISCtVW4KRgEiPTCkOEXkBRxj GKQyXJGftl6MKFLqHTXfMBBcEJWtPAPvIRZuERrkDH ItABZ7ErN3NXXhDQUyNU8QVbCfPSFdSOU7QScwZBUtTTJvrx8WXKZlBYNdDwQzWLAhGMIcTMAgQOxmGQ BdKVA4UtU8WPZvIGGuDX5DKlUhZFKzARm5IOcwUTImLFUryb8WBNRqTFJgUCz0UANkXNHsLWQkDWdzFD KdULO9KRVtXRJtUSYuPC2SJiXkJWGcZMbpQVzqQLYa EHZvgf8TSQArKQHpEEPeUUAdTNLwHUStNWewMWTiYFQ9MxKqJTXwHYMtTV1GHaUnZSGwOEX4YeElPSLt KZLjzo3AETOqDZBrNEx5XuBkEJUhEBLrVXaoTLOhLPL8NEXbKGFfRFMsJF8RMgAxLFPdEDY1GrJvATBt ISIztu2KSVUcENXvPgO8PfAjWOAbMGVsLVmgYLLgPB Y8CkPxYIXyEGFgUY6RUzUkVOCfZfNvRTOeLMXvJMOexu4JUGPiILCrWEF6ZnQtITHrPMGtELwlJUCaXK B1HIxpEEQbLZAhHG0VFjJlDMRaTdU8PdLmEZSkJIRghb1OSYDrHLQgPDc2MhPfNJJbGUNeMCpnKBRuGH R5ESntWPKhVGZyZY9HRrWrNZMvKGIuXnWxLOUzVBZc lv7KGUFuAAB4FyM4QDDyXDHdLBUqGFpmWKOfTHH0BIXnKNKsIUVnAQ2PFrLsWMMzTMHgYRVlYZIrIKOb vw1ULYVxGTE2IXC1IkCqJHBdPOEiYDazYRQmWJD2OTErMEByJXCbMB4TXrMxVAIxFvZ1CXoxSUMoOIPd zu5MQTVkHWK3IPPkMPKyDTMzALWdCSrvAMClKBF9Ch J3YPEaYOAbID9XHuAvJWDzSetxLPKgFSFiELUrwb2OOZNpUIC8LPLtQVQtVODuSGCjYThoDZOwNJQ5KT YmUAUsPEBoKW4HChYtPTliLZABXya9GOnsX8y8QHH9Qu3NP9Ffw2DuSOVdHERWLCveBF5pqrTnWNOcAn 6EJ3eGOlm5ISC3Lxd4GCVpEnDnHtRaQMA0KAB8VuT1 Mgt3DPMaVU8yVARwIpviJQJ8TlHhFIE3STL8ZgNiPgtqEfVwYOl4DXUdFdHuKZ4SZl3AFzV7HRM9eFXl Ns0ELzf8PNwRQhQuZL7RGVa= ID Date Data Source [id number] 05/31/2020 08:25:00 AM EST [facility] Name Value Range Interpretation Code Description Data Nadine rce(s) Supporting Document(s) SARS coronavirus 2 RNA Detected [facility] This lab was ordered by [facility] Laboratory and reported by [facility]. Procedure Social History No Information
[2021-03-22] MEDS ORDERED: NS 1,000 ML IV ONE (03:45)
[2021-03-22 04:13] LABS: BASO % 0.6 % (0.0-1.0); EOS # 0.1 10^3/uL (0.0-0.5); EOS % 3.8 % (0.0-3.0); HEMATOCRIT 42.1 % (42.0-52.0); HEMOGLOBIN 13.6 g/dl (13.5-17.5); LYMPH # 1.1 10^3/uL (1.5-5.0); LYMPH % 33.4 % (24.0-44.0); MEAN CORPUSCULAR HEMOGLOBIN 26.1 pg (27.0-33.0); MEAN CORPUSCULAR HGB CONC 32.3 g/dl (32.0-36.5); MEAN CORPUSCULAR VOLUME 80.8 fl (80.0-96.0); MONO # 0.3 10^3/uL (0.0-0.8); MONO % 10.7 % (2.0-8.0); NEUTROPHILS # 1.6 10^3/uL (1.5-8.5); NEUTROPHILS % 51.5 % (36.0-66.0); PLATELET COUNT, AUTOMATED 239 10^3/uL (150-450); RED BLOOD COUNT 5.21 10^6/uL (4.30-6.10); WHITE BLOOD COUNT 3.2 10^3/uL (4.0-10.0)
[2021-03-22 04:41] LABS: CK-MB VALUE MASS < 1.0 NG/ML (<3.6); CPK CREATINE PHOSPHOKINASE 111 U/L (39-308); TROPONIN I < 0.02 NG/ML (< 0.10)
[2021-03-22 04:51] LABS: ALBUMIN 3.6 GM/DL (3.2-5.2); ALT/SGPT 18 U/L (12-78); BILIRUBIN,DIRECT < 0.1 MG/DL (0.0-0.2); BILIRUBIN,TOTAL 0.3 MG/DL (0.2-1.0); BLOOD UREA NITROGEN 5 MG/DL (7-18); CALCIUM LEVEL 8.8 MG/DL (8.5-10.1); CARBON DIOXIDE LEVEL 31 MEQ/L (21-32); CHLORIDE LEVEL 104 MEQ/L (98-107); CREATININE FOR GFR 0.93 MG/DL (0.70-1.30); GLOMERULAR FILTRATION RATE > 60.0 (>60); GLUCOSE, FASTING 89 MG/DL (70-100); LIPASE 65 U/L (73-393); POTASSIUM SERUM 3.8 MEQ/L (3.5-5.1); SODIUM LEVEL 140 MEQ/L (136-145); TOTAL PROTEIN 7.8 GM/DL (6.4-8.2)
--- OUTSIDE RECORDS SUMMARY | 2021-03-22 05:58 | CCD ---
Author Author [facility] Organization [facility] Address Unknown Phone Unavailable Care Team Providers Care Surfacer Name Role Phone Erlin, Brittney Bejarano MD [...] is protected by Article 27-F of the [facility] Public Health law. If you continue you may have access to information: Regarding HIV / AIDS; Provided by facilities licensed or operated by the [facility] Office of Mental Health; or Provided by the [facility] Office for People With Developmental Disabilities. If such information is present, then the following [facility] mandated warning applies: This information has been [...] law may result in a fine or shelter sentence or both. A general authorization for the release of medical or other information is NOT sufficient authorization for further disc losure. Encounters Encounter Providers Location Date Indications Data Source(s ) Outpatient Referrer: Darci Kern MD [id number] 2020 08:21:06 AM EDT - 12/16/2020 11:59:[address] [facility] [place] Patient discharged. Medications No Information Insurance Providers Payer name Policy type / Coverage type Policy ID Covered democrat ID Covered democrat's relationship to laguerre Policy Laguerre Plan Information [facility] D[employer] [id number] SP [id number] COMMERCIAL GENERIC [id number] [facility] [id number] COMMERCIAL GENERIC [id number] [facility] [id number] S [id number] [employer] [facility] O [id number] S [id number] [facility] [employer]MANA - O/P [id number] Problems, Conditions, and Diagnoses Code Display Name Description Problem Type Effective Dates Data Source(s) R00.2 Palpitations Palpitations Diagnosis 12/16/2020 08:21:06 A M EDT [facility] Surgeries/Procedures Procedure Description Date Indications Data Source(s) ECHO TTHRC R-T 2D W/WOM-MODE COMPL SPEC&COLR DOP <td>E CHOCARDIOGRAM TRANSTHORACIC</td><td>Routine</td><td>12/16/2020 9:08 AM EDT</td><td> Palpitations</td><td> </td> 12/16/2020 09:08:57 AM EDT Palpitations [facility] Palpitations Results ID Date Data Source [id number] 12/16/2020 12:52:14 PM EDT [facility] Name Value Range Interpretation Code Description Data Nadine rce(s) Supporting Document(s) &PDF [facility] AEOHTe8fBgRRBxZj43/VLEbiRAStm7PlLTnxYDo0YSkgHLCnK1YznBrsJRXQPg4FFgdFVTTJVZfCLvER 0b3 [file] 6vy7NOborDhmqnSNvq+L81Z0pw/Dh/PALRtUj9p0kLasnpOcxh06YW/GbkzgMXwRR/Bl/Cn++ya9hK Mqe9oH8mf6GWiEjLgLfRX+qn1n1jTG5pTCSNK0EXhhyJX7VqK51HZzemxlAnHxOZRVD8lXhOzZaWYBD3 vW0NRKtG+KQAePD4NbZk+jQrcAe3FX1MmjPV0O5wAN R/7cfLp0BGqBEurro6yqubDgJcEGsMzxCYreJL6UEEflp+KfwMfgW/Jf9+B+/Ap/FXCTy3GuknBC02UE 5c03beR2zf2aDdpR+V2ULB6cL0I27F4zMuA5bVDocOnrD53C9nXSeXRfMxdDtvw80VKKudgKGgflGdQB /yHs8YQUAj4RjtlpMp5qdrBidIGrEIDAb9v5LjwZuy PiE+L/7vjE49W4lm6HlF5TphuJHD7Z1nri4Dfp6cthJe40B+jyFd8Td6XMcd4YqPB+AhLMAh+C5+IIjC feJE0bV41GxhDc3DFkIakTKPrkUZ/htLxxvyg2M6nJFEvVR/s4MAj9R5mLlZI6NF+GIUuC6vJUJYHV2J J3UKCSLW1QXGoWZoPY6hf0USobSd94+mfJgPHXiSPU VOaoo0cXRfLO9aDrOTX6fv8bp4BY2NOlfj6Po1duomPzzetlyFMMo+AVThHTo/j1ZY8qanjjfssUrP5o EReXwH97f8XA0cqZgTVlCt6+F3fbO1pT4A/nuemhDcbLvjHFoeQH1joLRh71Sr7NbvKkn53Tn9LjsH7o CzkJpSnLCnSsj9t+mh5UMGFX2ypw91I6IGdXVZy1jE dyOwSbDMHOwsOsf9oYsisq3G+OxjWM3nLg7Ntlma4Q7N0PpZ4E1l86dxFe7hzXr4NDSt33qwk9lT4kg3 t/datjBMp5jjtztykbCaQaRrqeu8qykXbVoJHxqzD5jyCb8I8gUhdbeXoA/g+Xp8a2dqvjYwyLDhlsgD gz+UB8/Tz77gYHdhjF0iOThEdoCGl2dRSnytQr0qRI 9SipQCJV/UQoLFYkPatcBLINgYkG3pw/i/iKwhVg5cKe+LFl7A+José/1GJIgxhk8Ec6BegS1kk3ViRBz [file] ICAgICAgICAgICAgICAgICAgICAgICAgICAgICAgIC AgICAgICAgICAgICAgICAgICAgICAgICAgICAgICAgICAgICAgICAgICAgICAgICAgICAgICAgICAgIC AgDQogICAgICAgICAgICAgICAgICAgICAgICAgICAgICAgICAgICAgICAgICAgICAgICAgICAgICAgIC AgICAgICAgICAgICAgICAgICAgICAgICAgICAgICAg ICAgICAgICAgICAgDQogICAgICAgICAgICAgICAgICAgICAgICAgICAgICAgICAgICAgICAgICAgICAg ICAgICAgICAgICAgICAgICAgICAgICAgICAgICAgICAgICAgICAgICAgICAgICAgICAgICAgDQogICAg ICAgICAgICAgICAgICAgICAgICAgICAgICAgICAgIC AgICAgICAgICAgICAgICAgICAgICAgICAgICAgICAgICAgICAgICAgICAgICAgICAgICAgICAgICAgIC AgICAgDQogICAgICAgICAgICAgICAgICAgICAgICAgICAgICAgICAgICAgICAgICAgICAgICAgICAgIC AgICAgICAgICAgICAgICAgICAgICAgICAgICAgICAg ICAgICAgICAgICAgICAgDQogICAgICAgICAgICAgICAgICAgICAgICAgICAgICAgICAgICAgICAgICAg ICAgICAgICAgICAgICAgICAgICAgICAgICAgICAgICAgICAgICAgICAgICAgICAgICAgICAgICAgDQog ICAgICAgICAgICAgICAgICAgICAgICAgICAgICAgIC AgICAgICAgICAgICAgICAgICAgICAgICAgICAgICAgICAgICAgICAgICAgICAgICAgICAgICAgICAgIC AgICAgICAgDQogICAgICAgICAgICAgICAgICAgICAgICAgICAgICAgICAgICAgICAgICAgICAgICAgIC AgICAgICAgICAgICAgICAgICAgICAgICAgICAgICAg ICAgICAgICAgICAgICAgICAgDQogICAgICAgICAgICAgICAgICAgICAgICAgICAgICAgICAgICAgICAg ICAgICAgICAgICAgICAgICAgICAgICAgICAgICAgICAgICAgICAgICAgICAgICAgICAgICAgICAgICAg DQogICAgICAgICAgICAgICAgICAgICAgICAgICAgIC AgICAgICAgICAgICAgICAgICAgICAgICAgICAgICAgICAgICAgICAgICAgICAgICAgICAgICAgICAgIC TjFEDuLXZeOVClBHg6B0fvZAFmCDQyJP3nFBq3Kn0+QSySHuFlHVH3axOlbV6KLO7rn7YmWYpfWLBre7 LwNBj9DG0LPBKfELugQG5PVQqpxw6ENMDqFSLgqPAN z0vgDeWsXDE9TPGjJyqxFL2AISTwF5eoljUhUWAqJTAWLEnpVPDHLGgjRMLWVC9UJyWnB3MqfS71GJGZ Cj4+VLunaiQmPcnFZrYgODRgb2NuGMp2WR4GFISkIEouVU4MDMBxkE0oJVnaTZ9WMeA8LCCfOIPNTzPt D75epKTdPWv2J8VfCyXsEMFsBbzwWQIkGOemLfRvYQ MgWyBdDQogID4+ID4+TKuoCE7SDZsfuoEjJMSaJh0UGBEnQWH7CJMovXBgMFLrBHQZSRsfOO7KvWJnPK R8dB8oXVbeGRWkSCOfJ4zVPlKgvTgcFD31aHeqzvHxlQKkYQm+En1URN8nk4PmDKb2nkGvSIjmSJYdZD vaGLAbRUMuHGWyNMH7WRM9PBRETwNsKDItVYEeJWse VPEcPTVrak7MAPArYWN2MkYfJjUtJFBqQHOeFNoeOGNpKFB0NpDdTCAoKAKhXI7EXsLpBUMlBCAdJDYh UZJmVJTexi0XLSSrTIVoNpofZzOkYIShAIUsXXjoRRXeQXKjORJbHRAlJQEsYI5FTkClMCXpSKVxDTza ASUxKGEotj8FTUAsCVCsDQNkPNGeQLIqJAJtWNscTV ZxSCN3WuC7VJSiZSTpUU9ALcWuXHFwMYO1QYdrIGBmQDYefi5LEABzFZSaDhGtLPYjSXBsBAHmHWgtBS QjLIS9KkC8ETBdCAGtJC6XZgAgKIQnIGt8MNnySNZsXLJgyo9NZACxPRUoJBi2WIJiWVFtLCSqWNnyOK JjMVA9MLIyISEpKRBqRK3CSeVgQJKhFLgoXZzzFAIv BITgbq7XXNAxWVMcYYCsLRSsMGTpPIDcGEbyRWUmSJC6VmSoBLAoVHPcVF5MOsLxDLMmMZA2UzEzVXCy VFQljy9NRNRqVTYhTTw4JmWoBPPyVTEkYAlgBWBiMMY0BIRdTVElMLGaZH7WRhWkOXOuEDW0OvUfHAGf WBNaxr1BKRHgDMHfIoU5ZtPiXUVaENJrYAjoVZRmUO H3GvOlCVNiZMQbHP9PZiDcZJYxDlPbNLVbLFVxTHFmnu3PASXnMVDfSEY2QkJvAJZrSOLzAEgkRKDwBF W6RQkrAMQvXSUyNJ3AQpUtQLRuPnA5LxRgKIWjPSMisy3POOViGOFkGUs1YhUfKKDxYVKoYPysWZOuBC P9TYgbJVFiDRAlMH8ODmTwNAXiHPFgYdRlZKZcWXCj va0HBXBfZIJ0YxQ7BXEgOECdOWOoUYgcTODxKOL2ZIBhDQXfORWiQF4MUoPrKLGiTJCbDROrCSNqPAZl xa8NOJHcVVP8JCV1ZtPeWDKpMNEkZOyoUGXkEIB0MWTkZYMbHZXuHU8IUjJeWIGoFiM0LYipHSXgVWCu wc7SZTAoVOE5BURbTJJqKGLcAVZmFBreIKOpAOS2Sf B1PTIaZLAzLM6ZOzOuHMJlAgblCSOgGJPdNVGsvm9DPTUsYQK0WIPgZXBcIOQwJELcBSgoDHQjVXR7CJ AtUBDpDMRxDX3RWpQgDBcgQSLWNcr0NGwrE6r5FSC8Ck7MW7Vay0NgVCCnYXBTIZfbEK7mubCcYPJgKw 5LN9nOGys5VMB5Vxy6EATaGvSjFgHhQPB7NQN2NlG6 Ikk9HQXvZH3qAHWhBwgpNGB3ZcAzFSX5TEC8QzUvPoywBkOhUEf8RPUwUpQpPH5XGk2TRxU9AHG6dRNi Vq0IHcq0EIhXAhJjKA6YEJl= ID Date Data Source [id number] 05/31/2020 08:25:00 AM EST [facility] Name Value Range Interpretation Code Description Data Nadine rce(s) Supporting Document(s) SARS coronavirus 2 RNA Detected [facility] This lab was ordered by [facility] and reported by [facility]. Procedure Social History No Information
[2021-03-22] MEDS ORDERED: KETOROLAC 30 MG/ML 1ML VIAL IV ONE (06:30)
[2021-03-22] MEDS ORDERED: ISOVUE-370 76% 100ML VIAL As Ordered ONE (06:34)
[2021-03-22 06:45] LABS: C REACTIVE PROTEIN QUANTITATIV < 0.30 MG/DL (0.00-0.30)
--- NOTE | 2021-03-22 07:16 | REPVR ---
PROCEDURE INFORMATION: Exam: CT Abdomen And Pelvis With Contrast Exam date and time: 03/22/2021 6:56 AM Age: 20 years old Clinical indication: Abdominal pain; Localized; Right; Additional info: Rlq abdominal pain- R/O appendicitis TECHNIQUE: Imaging protocol: Computed tomography of the abdomen and pelvis with contrast. Radiation optimization: All CT scans at this facility use at least one of these dose optimization techniques: automated exposure control; mA and/or kV adjustment per patient size (includes targeted exams where dose is matched to clinical indication); or iterative reconstruction. Contrast material: ISOVUE 370; Contrast volume: 100 ml; Contrast route: INTRAVENOUS (IV); COMPARISON: Abdomen, limited US 06/06/2019 8:53 AM FINDINGS: Liver: Normal. No mass. Gallbladder and bile ducts: No calcified stones. No ductal dilation. Pancreas: Normal. No ductal dilation. Spleen: Normal. No splenomegaly. Adrenal glands: Normal. No mass. Kidneys and ureters: Normal. No hydronephrosis. Stomach and bowel: No obstruction. Appendix: No evidence of appendicitis. Intraperitoneal space: No free air. No significant fluid collection. Vasculature: No abdominal aortic aneurysm. Lymph nodes: No enlarged lymph nodes. Urinary bladder: Unremarkable as visualized. Reproductive: Unremarkable as visualized. Bones/joints: No acute fracture. Soft tissues: There is a 1.1 cm region of enhancement medial to the right piriformis (series 202, image 64 and series 201, image 112). IMPRESSION: 1. No evidence of appendicitis. 2. Small mass medial to the right piriformis This is not a specific finding but could represent a lymph node or a nerve sheath tumor/ schwannoma. A follow-up nonemergent pelvic MRI without with IV contrast is recommended. Electronically signed by: Paul Cox On 03/22/2021 07:16:00 AM
[2021-03-22 07:36] LABS: ERYTHROCYTE SEDIMENTATION RATE 7 mm/hr (0-15)
[2021-03-22 08:45] VITALS: BP 132/79
--- NOTE | 2021-03-22 11:31 | ECGEPIP ---
[facility] - ED Test Date: 2021-03-22 Pat Name: DAWIT SALVADOR Department: Room: - Gender: Male Wholesale Representative: MAYRA : 2000 Requested By: GRETCHEN THOMAS Order Number: [id number] Reading MD: Favian Whittington Measurements Intervals [place] Rate: 73 P: 76 ME: 208 QRS: 58 QRSD: 80 T: 38 QT: 354 QTc: 389 Interpretive Statements Normal sinus rhythm POOR R WAVE PROGRESSION SIMILAR TO 11/27/20 Electronically Signed on 03-22-2021 11:31:35 EST by Favian Whittington
== END 2021-03-22 08:55 | disposition home or self-care (01) ==
LOC: M ED 03:19
DX: R10.9 Unspecified abdominal pain (principal); T58.91XA Toxic effect of carbon monoxide from unspecified source, accidental (unintentional), initial encounter; R93.5 Abnormal findings on diagnostic imaging of other abdominal regions, including retroperitoneum; R56.9 Unspecified convulsions; Z79.899 Other long term (current) drug therapy
CPT/HCPCS: 74177; 80048; 80076; 81001; 82375; 82550; 82553; 83605; 83690; 84484; 85025; 85652; 86140; 93005; 93041; 96361; 96374; 99285; J1885; Q9967